=== PATIENT | male | born 1950 | race Caucasian/White ===

== ENCOUNTER 2018-04-12 16:48 | Emergency (ER) | payer MEDICARE, SELFPAY ==
[2018-04-12 16:50] VITALS: BP 143/89; PULSE 81; RESP 16; TEMP 36.5; O2SAT 94
--- NOTE | 2018-04-12 16:59 | DI.RAD_ITS ---
SYMPTOM/DIAGNOSIS: COUGH, RT BASE RHONCHI PA AND LATERAL CHEST: Comparison is made with 02/12/16. The heart size is normal. The aorta is mildly tortuous. The lungs are clear. There are mild degenerative changes in the spine. IMPRESSION: No acute abnormality.
--- NOTE | 2018-04-12 17:10 | ED.GENADUL_ITS ---
Discharge Plan Disposition Patient Disposition: HOME Condition: Stable Discharge Details Chief Complaint: RespSymp Clinical Impression: Pneumonia Primary Care Provider: Osman Garnica ED Provider: Андрей Novoa Home Meds and New Rx's Prescriptions: New amoxicillin-pot clavulanate 875-125 mg tablet 1 tab PO BID 10 Days Qty: 20 RF: 0 Continued aspirin [Aspirin Low-Strength] 81 MG tablet,chewable 81 mg PO DAILY RF: 0 cpap machine HS Qty: 1 RF: 0 ibuprofen 800 MG tablet 800 mg PO BID PRNQty: 60 RF: 1 sildenafil [Viagra] 100 MG tablet 100 mg PO DAILY PRNQty: 6 RF: 11 ProAir HFA 8.5 GM HFA aerosol inhaler 2 puff Inhalation Q6H PRN Qty: 1 RF: 11 ranitidine HCl 150 MG capsule 150 mg PO BID PRNQty: 90 RF: 3 Atorvastatin Calcium 20 MG tablet 20 mg PO DAILY Qty: 30 RF: 6 lidocaine-prilocaine 30 GM cream 30 gm Topical Q4H PRN Qty: 1 RF: 3 Discharge Instructions Instructions: Pneumonia (ED) Additional Instructions: Home to rest today. Small, frequent sips of fluids to maintain hydration. Followup with Dr Garnica for recheck if not improved in 4-5 days time. Return for worsening discomfort, or any other concerns. Tylenol as needed for aches, pains, fever. Medical Decision Making 67-year-old male with progressive cough and cold symptoms over 10-14 days time now with 3-4 days of increasing congestion, production of yellow sputum, subjective report of a fever and chills. He arrives afebrile, his vital signs are unremarkable, he has rhonchi on auscultation of the right base. Differential includes bronchitis versus pneumonia. Patient referred for chest x-ray which does not reveal focal infiltrate. I do feel clinical he is developing a right basilar pneumonia & we will place on a course of Augmentin. HPI General Mode of arrival: ambulatory . Date/Time Provider Initiated Documentation: 04/12/18 16:51 . Limitations to Documentation: no limitations . Information obtained by: patient . History of Present Illness 67 year old M presents to the emergency department with the chief complaint of Cough, sputum, fever, described as moderate, Quality is described as aching, and is localized to the chest. Patient reports no radiation. Patient started experiencing this day(s) and it has been constant. No relieving factors improve symptom(s), No exacerbating factors reported . Patient notes cough and fever/chills. Patient did receive the following treatments prior to arrival, none Related Data Home Medications Medication Instructions Recorded Confirmed aspirin [Aspirin Low-Strength] 81 mg PO DAILY tab-cap 04/01/14 ProAir HFA 2 puff INHALATION Q6H PRN #1 puff 12/19/16 04/12/18 ibuprofen 800 mg PO BID PRN #60 tab-cap 12/19/16 sildenafil [Viagra] 100 mg PO DAILY PRN #6 tab-cap 12/19/16 04/12/18 ranitidine HCl 150 mg PO BID PRN #90 tab-cap 03/06/17 lidocaine-prilocaine 30 gm TOPICAL Q4H PRN #1 tube 07/26/17 amoxicillin-pot clavulanate 1 tab PO BID 10 Days #20 tab 04/12/18 Previous Rx's Medication Instructions Recorded ProAir HFA 2 puff INHALATION Q6H PRN #1 puff 12/19/16 lidocaine-prilocaine 30 gm TOPICAL Q4H PRN #1 tube 07/26/17 amoxicillin-pot clavulanate 1 tab PO BID 10 Days #20 tab 04/12/18 Allergies Allergy/AdvReac Type Severity Reaction Status Date / Time No Known Allergies Allergy Unverified 04/12/18 16:55 General Stated Complaint: RespSymp KAYODE: 3 Review of Systems Review of Systems 11/10 reviewed and otherwise neg [facility] Surgical History Extraction of cataract Thoracentesis hernia repair Family History Father No problems noted. Brother No problems noted. Mother No problems noted. Brother Myocardial infarction Brother No problems noted. Sister No problems noted. Sister No problems noted. Sister No problems noted. Social History Smoking/Tobacco Use Status: Former Tobacco Use Exam Narrative Exam Narrative: GEN: awake, alert, oriented 3. Pleasant, well groomed, interactive. HEAD: Normocephalic, atraumatic ENT: Mucous membranes moist, oropharynx unremarkable, External ear exam unremarkable EYES: PERRL, EOMI NECK: Full ROM, no IRON, no menigismus CHEST/RESP: Nontender, right base rhonchi, otherwise clear, no wheeze CARDIOVASCULAR: RRR, no murmur, rub angi. 2+ Rad pulse bilateral ABDOMEN: Soft, nontender, no mass. +Bowel sounds EXT: Full ROM, no edema, no rash Neuro: Grossly normal neurologic exam, conversant, interactive. Psych: Speech fluent, thoughts congruent, affect normal Course Vital Signs Temperature 36.5 C 04/12/18 16:50 Pulse 81 04/12/18 16:50 Respiratory Rate 16 04/12/18 16:50 Blood Pressure 143/89 H 04/12/18 16:50 Pulse Oximetry 94 L 04/12/18 16:50 Temperature 36.5 C 04/12/18 16:50 Temperature Source Skin 04/12/18 16:50 Pulse 81 04/12/18 16:50 Respiratory Rate 16 04/12/18 16:50 Blood Pressure 143/89 H 04/12/18 16:50 Blood Pressure Position Sitting 04/12/18 16:50 Pulse Oximetry 94 L 04/12/18 16:50 Oxygen Delivery Method Room Air 04/12/18 16:50 Oxygen Flow Rate 0 04/12/18 16:50 Pain Level 4 04/12/18 16:50
--- NOTE | 2018-04-12 17:29 | DI.VRAD_ITS ---
EXAM: XR Chest, 2 Views EXAM DATE/TIME: 04/12/2018 4:59 PM CLINICAL HISTORY: 67 years old, male; Pain; Chest pain TECHNIQUE: XR of the chest, 2 views. COMPARISON: CR CHEST 2 VIEWS PA,LAT 02/12/2016 3:33 PM FINDINGS: Lungs: Unremarkable. No consolidation. Pleural space: Unremarkable. No pleural effusion. No pneumothorax. Heart/Mediastinum: Unremarkable. No cardiomegaly. Bones/joints: Chronic osseous changes. IMPRESSION: No acute cardiopulmonary findings. Dictated and Authenticated by: Rd Baeza MD. Ordering:IFEANYI Chiang MD
[2018-04-12] MEDS: Amoxicillin 875/Clav. 125 TAB PO (17:37)
[2018-04-12 17:40] VITALS: BP 143/89; PULSE 81; RESP 16; TEMP 36.5; O2SAT 94
== END 2018-04-12 17:45 | disposition home or self-care (01) ==
LOC: ER 17:47
PROVIDERS: Emergency Provider Emergency Medicine; PCP Family Medicine
DX: J18.9 Pneumonia, unspecified organism (principal)
CPT/HCPCS: 99284; 71046

== ENCOUNTER 2018-06-12 12:37 | Emergency (ER) | payer MEDICARE, SELFPAY ==
[2018-06-12 12:40] VITALS: BP 164/84; PULSE 74; RESP 20; TEMP 36.9; O2SAT 97
--- NOTE | 2018-06-12 12:57 | NUR.NOTE ---
Denies recent fall or trauma to either ear. No ear drainage. Tympanic membrane looks to be shiny, intact, pearly grace/pink. Nursing Note:
--- NOTE | 2018-06-12 13:07 | DI.CT_ITS ---
SYMPTOMS/DIAGNOSIS: RIGHT-SIDED SHARP HEADACHE, ? MASS/BLEED/CEREBROVASCULAR ACCIDENT CT HEAD, NONCONTRAST: No priors. The ventricles and sulci are consistent with the patient's age. No acute intracranial hemorrhage, infarct, midline shift or mass effect is identified. The ventricles are intact. The basilar cisterns are patent. The visualized paranasal sinuses are clear. The mastoid air cells are well pneumatized. The calvarium is intact. IMPRESSION: No acute intracranial process. The findings were discussed with Dr. Cabrera of the Emergency Department on the date of the examination.
--- NOTE | 2018-06-12 13:08 | ED.GENADUL_ITS ---
Discharge Plan Disposition Patient Disposition: HOME Condition: Improving Discharge Details Chief Complaint: Headache Clinical Impression: Right trigeminal neuralgia, Neuralgia involving scalp Primary Care Provider: Osman Garnica ED Provider: Merissa Cabrera Home Meds and New Rx's Prescriptions: New valacyclovir 1 gram tablet 1,000 mg PO TID 7 Days Qty: 21 RF: 0 No Action aspirin [Aspirin Low-Strength] 81 MG tablet,chewable 81 mg PO DAILY RF: 0 cpap machine HS Qty: 1 RF: 0 Discharge Instructions Instructions: Shingles (ED), Trigeminal Neuralgia (ED) Additional Instructions: The pain in your head and ear and near your eye might be due to a viral infection called shingles. The pain associated with shingles sometimes can start days to weeks before the onset of a rash. You may not have shingles, but if you do, it's important to start antiviral medication as soon as possible to prevent terminal block assembler pain associated with shingles called post-herpatic neuralgia. Take tylenol as needed and directed for pain. Follow up with your primary care doctor in 1 week for re-evaluation and for referral to neurology if your symptoms do not improve or worsen and for consideration of neuropathic medications to help with pain. Return immediately to the emergency department with any worsening or new concerning symptoms. Referrals: Roberta Winkler MD [ [facility] STAFF PHYSICIAN] - Discharge Data Discharge Physician: Merissa Cabrera Medical Decision Making 68-year-old male with history of asthma, GERD and obstructive sleep apnea who presents for right-sided headache for the past 3 days. Admits to right-sided ear pain that started 2 days prior to headache which resolved after 2 days. Also admits to weight nasal discharge, postnasal drip and sneezing. Patient admits to a chronic cough and smokes 1/2 pack of cigarettes daily. He denies fever, visual changes, nausea, vomiting, neck pain, sore throat, numbness, weakness or dizziness. Blood pressure mildly hypertensive, remainder vitals within normal limits. He has a very localized area of his location of intermittent sharp stabbing pain in the right parietal region. It is not tender to the touch and there is no evidence of infection or trauma. Normal ENT exam. Lungs clear to auscultation. No focal deficits. No meningeal signs. Discussed with patient that considering his age and complaint, would be best to obtain a CT head to rule out any acute process. Will give a dose of tylenol. 1410 -- CT head negative. Pt states his headache is improved. D/w neurology - presentation appears more c/w a neuralgia, considering a trigeminal neuralgia or possibly shingles. Agrees with plan for CTA head to rule out aneurysm. If negative, recommends antivirals upon discharge. Discussed with patient and now is present in room and they are agreeable with plan. now states that patient complained of foreign body sensation in eye 3 days ago which has been resolved for the past few days. He denies any significant eye pain, blurry vision or rash around the eye. This may make the presentation more consistent with a possible shingles affecting the ophthalmic branch of trigeminal nerve. 1530 -- CTA head/neck negative. Pt feels much better and is requesting to go home. Pt sent home with a prescription for anti-virals. Patient is instructed to follow-up with his primary care doctor for reevaluation and for referral for MRI if symptoms do not improve or worsen. Patient was also given referral for neurology for reevaluation if symptoms do not improve. He is also instructed to return here immediately with any significant worsening or new concerning symptoms. Medical Records Medical records reviewed: Yes I reviewed the patient's medical records. Imaging Data Radiologic Study: Radiologist's impression: CT HEAD, NONCONTRAST: No priors. The ventricles and sulci are consistent with the patient's age. No acute intracranial hemorrhage, infarct, midline shift or mass effect is identified. The ventricles are intact. The basilar cisterns are patent. The visualized paranasal sinuses are clear. The mastoid air cells are well pneumatized. The calvarium is intact. IMPRESSION: No acute intracranial process. CTA OF THE HEAD AND NECK: CT angiography was performed with multi slice acquisition and multi planar and 3D reconstruction. The common carotid arteries are unremarkable. No evidence of dissection, occlusion or significant stenosis. The external carotid arteries are unremarkable without evidence of occlusion or significant stenosis. The internal carotid arteries are unremarkable. No evidence of occlusion, dissection or significant stenosis is present. The vertebral arteries are unremarkable without evidence of dissection, occlusion or significant stenosis. There is mild calcification seen in the cavernous portion of the right internal carotid artery. The intracranial portion of the internal carotid arteries are otherwise unremarkable with no evidence of aneurysm, occlusion or significant stenosis. The anterior cerebral arteries are unremarkable without evidence of occlusion, aneurysm or significant stenosis. The middle cerebral arteries are unremarkable without evidence of aneurysm, occlusion or significant stenosis. The basilar artery is unremarkable without evidence of occlusion, dissection or significant stenosis. No aneurysm is seen. The posterior cerebral arteries are unremarkable without evidence of occlusion, aneurysm or significant stenosis. No acute abnormality is seen in the soft tissues. There are mild central lobular emphysematous changes in the lung apices. No acute infiltrates are seen. Degenerative changes are seen in the spine. IMPRESSION: No acute arterial injury is seen in the head or neck. Lab Data Lab results reviewed: Yes I reviewed the patient's lab results. Laboratory Tests Range/Units 06/12/18 06/12/18 14:30 14:30 WBC (4.4-10.8) k/cumm 8.10 RBC (4.50-6.00) m/cumm 4.30 L Hgb (13.5-17.5) g/dL 13.4 L Hct (40.0-50.0) % 40.0 MCV (80-95) fL 93.0 MCH (27.0-33.0) pg 31.2 MCHC (32.0-36.0) g/dL 33.5 RDW (11.8-14.1) % 14.4 H Plt Count (130-400) x1000/uL 217 MPV (8.0-11.0) fL 11.1 H Immature Gran % 0.2 Neutrophils % 62.9 Lymphocytes % 24.4 Monocytes % 8.0 Eosinophils % 3.5 Basophils % 1.0 Absolute Neutrophils (1.2-6.7) k/cumm 5.09 Absolute Lymphocytes (1.2-3.4) k/cumm 1.98 Absolute Monocytes (0.11-0.7) k/cumm 0.65 Absolute Eosinophils (0.0-0.7) k/cumm 0.28 Absolute Basophils (0.0-0.2) k/cumm 0.08 Sodium (136-145) mmol/L 142 Potassium (3.5-5.1) mmol/L 4.1 Chloride (98-107) mmol/L 105 Carbon Dioxide (21.0-32.0) mmol/L 30.9 Anion Gap (3-11) mmol/L 6.1 BUN (7-18) mg/dL 18 Creatinine (0.70-1.30) mg/dL 0.86 Estimated GFR/1.73 m2 (mL/min/1.73m2) >= 60.00 Glucose (70-100) mg/dL 96 Calcium (8.5-10.1) mg/dL 8.6 HPI General Mode of arrival: ambulatory . Date/Time Provider Initiated Documentation: 06/12/18 12:39 . Limitations to Documentation: no limitations . Information obtained by: patient . HPI Narrative: Pt is a 68 yo M w/ a h/o asthma, GERD, ROSI who presents w/ a R sided headache for the past 3 days. Pt states the symptoms first started as R sided inner ear pain 5 days ago and then this resolved after 2 days and then headache started. Pt denies tinnitus or decreased hearing. Pt states the pain in his head is localized to an area on the R parietal region, is intermittent and feels like sharp and stabbing, occasionally worse with coughing but also occurs without any inciting factors. Denies any relieving factors. Denies any pain at present but states he had the pain a few minutes ago and it was 6/10. He does also admit to occasional white nasal mucus, sneezing and post nasal drip and states he was thinking he may have allergies from home. He denies vision changes, sore throat, nausea, vomiting, dizziness, unilateral extremity weakness or numbness, neck pain, chest pain or shortness of breath. Related Data Home Medications Medication Instructions Recorded Confirmed aspirin [Aspirin Low-Strength] 81 mg PO DAILY tab-cap 04/01/14 06/12/18 valacyclovir 1,000 mg PO TID 7 Days #21 tab 06/12/18 Previous Rx's Medication Instructions Recorded valacyclovir 1,000 mg PO TID 7 Days #21 tab 06/12/18 Allergies Allergy/AdvReac Type Severity Reaction Status Date / Time No Known Allergies Allergy Unverified 06/12/18 12:44 General Stated Complaint: Headache KAYODE: 3 Review of Systems Review of Systems All systems reviewed & are unremarkable except as noted in HPI and below Constitutional Reports as per HPI, Denies chills, Denies fever(s) and Reports headache(s) Eyes Denies blurry vision ENT Denies dizziness, Reports headache(s), Denies sore throat and Denies throat swelling Cardiovascular Denies chest pain and Denies dyspnea Respiratory Denies cough and Denies dyspnea Gastrointestinal Denies abdominal pain, Denies diarrhea and Denies vomiting Genitourinary Denies hematuria and Denies dysuria Musculoskeletal Denies back pain and Denies numbness Integumentary/Breasts Denies lesions and Denies rash Neurologic Denies dizziness, Reports headache(s), Denies focal weakness and Denies numbness Allergic/Immunologic Denies throat swelling [facility] Medical History Other hyperlipidemia (Chronic) Asthma (Chronic) GERD (gastroesophageal reflux disease) (Chronic) Obstructive sleep apnea (Chronic) Surgical History Extraction of cataract Thoracentesis hernia repair Family History Father No problems noted. Brother No problems noted. Mother No problems noted. Brother Myocardial infarction Brother No problems noted. Sister No problems noted. Sister No problems noted. Sister No problems noted. Social History household members: spouse service: Yes current occupational status: employed current occupation: [employer] Recent Travel: No what type of physical activity do you participate in: regular exercise frequency: daily Smoking and Tabacco status: Current every day alcohol intake: current alcohol intake frequency: holidays/special occasions only substance use type: does not use Exam Const General: cooperative and healthy appearing Orientation: alert and awake HENMT Head: normal to inspection Ears: hearing grossly normal bilaterally, external ears normal and TM's normal bilaterally General nose exam: external nose normal Face and sinus: normal facial exam Mouth: oral mucosae normal Teeth and gingiva: dentition normal Throat: posterior oropharynx normal Eyes General: appearance normal, both eyes and all related structures Eyelids: eyelids normal Pupils: PERRL EOM: EOM intact bilaterally Direct ophthalmoscopy: photophobia not present Neck Neck: normal visual inspection, no meningeal signs, trachea midline, supple, negative Brudzinski's sign, negative Kernig's sign and No submandibular swelling Lymphatic: no lymphadenopathy noted Chest Chest: normal inspection of the chest Resp Effort & Inspection: normal respiratory effort and able to speak in complete sentences Auscultation: clear to auscultation bilaterally Cardio Rate: regular rate Rhythm: regular rhythm GI Inspection: normal to inspection Palpation: soft, not firm, no guarding, no hepatosplenomegaly, no masses and nontender Auscultation: normal bowel sounds Skin General skin exam: no rashes or lesions noted Neuro General: alert, awake, oriented x3, moves all extremities, no meningeal signs, no focal motor deficits and CN's II-XI intact bilaterally Cognition: normal cognition Speech: speech normal Gait: normal gait Motor: muscle tone normal throughout, strength 5/5 throughout and no pronator drift Sensory Exam: no sensory deficits noted Extrem General: normal to inspection, full ROM, normal capillary refill and no edema Psych Appearance: grossly normal Mental Status: mental status grossly normal Speech and Movement: speech and movement normal Affect: normal affect Thought Process: normal Course Vital Signs Temperature 98.4 F 06/12/18 12:40 Pulse 74 06/12/18 12:40 Respiratory Rate 20 06/12/18 12:40 Blood Pressure 164/84 H 06/12/18 12:40 Pulse Oximetry 97 06/12/18 12:40 Temperature 98.4 F 06/12/18 12:40 Temperature Source Temporal Artery Scan 06/12/18 12:40 Pulse 74 06/12/18 12:40 Respiratory Rate 20 06/12/18 12:40 Respiratory Effort Non-Labored 06/12/18 12:40 Blood Pressure 164/84 H 06/12/18 12:40 Blood Pressure Position Sitting 06/12/18 12:40 Pulse Oximetry 97 06/12/18 12:40 Oxygen Delivery Method Room Air 06/12/18 12:40 Oxygen Flow Rate 0 06/12/18 12:40 Pain Level 6 06/12/18 12:47
[2018-06-12] MEDS: Acetaminophen 325 MG TAB 650 MG PO (13:18)
[2018-06-12 13:43] VITALS: BP 117/72; PULSE 64; RESP 24; O2SAT 95
--- NOTE | 2018-06-12 13:45 | NUR.NOTE ---
Escort to CT via wheelchair by CT staffNursing Note:
--- NOTE | 2018-06-12 14:09 | NUR.NOTE ---
Addendum entered by Cheryl Matos 06/12/18 14:11: Alert, no WOB, skin warm/dry/pink. Reports headache is now gone, approx 1 hour after tylenol dose. Dr. Cabrera notified Original Note: Return from CT. Nursing Note:
[2018-06-12] MEDS: Normal Saline Flush 10 ML SYR IVP (14:35)
[2018-06-12] MEDS: Normal Saline 250 ML IV (14:41)
[2018-06-12 14:43] LABS: Abs Immature Grans 0.02 k/cumm (0.0-0.09); Absolute Basophil Count 0.08 k/cumm (0.0-0.2); Absolute Eosinophil Count 0.28 k/cumm (0.0-0.7); Absolute Lymphocyte Count 1.98 k/cumm (1.2-3.4); Absolute Monocyte Count 0.65 k/cumm (0.11-0.7); Absolute Neutrophil Count 5.09 k/cumm (1.2-6.7); Eosinophils % 3.5; HGB 13.4 g/dL (13.5-17.5); Immature Grans % 0.2; Lymphocytes % 24.4; Mean Corp. HGB Concentration 33.5 g/dL (32.0-36.0); Mean Corpuscular Hemoglobin 31.2 pg (27.0-33.0); Mean Platelet Volume 11.1 fL (8.0-11.0); Neutrophils % 62.9; Platelet Count 217 x1000/uL (130-400); RBC Distribution Width 14.4 % (11.8-14.1)
[2018-06-12 14:49] VITALS: BP 119/67; PULSE 54; RESP 18; TEMP 36.7; O2SAT 97
[2018-06-12 14:51] LABS: Anion Gap 6.1 mmol/L (3-11); BUN 18 mg/dL (7-18); CO2 30.9 mmol/L (21.0-32.0); CREATININE 0.86 mg/dL (0.70-1.30); Calcium 8.6 mg/dL (8.5-10.1); Chloride 105 mmol/L (98-107); Glucose 96 mg/dL (70-100); Potassium 4.1 mmol/L (3.5-5.1); Sodium 142 mmol/L (136-145)
[2018-06-12] MEDS: Omnipaque 350 MG/ML 100 ML BTL 85 ML IJ (15:21)
--- NOTE | 2018-06-12 15:25 | DI.CT_ITS ---
SYMPTOMS/DIAGNOSIS: RIGHT-SIDED HEADACHE, RIGHT EAR PAIN, ASSESS VASCULATURE CTA OF THE HEAD AND NECK: CT angiography was performed with multi slice acquisition and multi planar and 3D reconstruction. The common carotid arteries are unremarkable. No evidence of dissection, occlusion or significant stenosis. The external carotid arteries are unremarkable without evidence of occlusion or significant stenosis. The internal carotid arteries are unremarkable. No evidence of occlusion, dissection or significant stenosis is present. The vertebral arteries are unremarkable without evidence of dissection, occlusion or significant stenosis. There is mild calcification seen in the cavernous portion of the right internal carotid artery. The intracranial portion of the internal carotid arteries are otherwise unremarkable with no evidence of aneurysm, occlusion or significant stenosis. The anterior cerebral arteries are unremarkable without evidence of occlusion, aneurysm or significant stenosis. The middle cerebral arteries are unremarkable without evidence of aneurysm, occlusion or significant stenosis. The basilar artery is unremarkable without evidence of occlusion, dissection or significant stenosis. No aneurysm is seen. The posterior cerebral arteries are unremarkable without evidence of occlusion, aneurysm or significant stenosis. No acute abnormality is seen in the soft tissues. There are mild central lobular emphysematous changes in the lung apices. No acute infiltrates are seen. Degenerative changes are seen in the spine. IMPRESSION: No acute arterial injury is seen in the head or neck. The findings were discussed with the Emergency Department on the date of the examination.
[2018-06-12 15:37] VITALS: BP 108/86; PULSE 59; RESP 16; TEMP 36.6; O2SAT 97
--- NOTE | 2018-06-12 15:47 | NUR.NOTE ---
Escorted to CT for CTA via stretcher by CT staff. Returned to ED without event. Nursing Note:
[2018-06-12 16:11] VITALS: BP 135/74; PULSE 56; RESP 22; TEMP 36.7; O2SAT 95
== END 2018-06-12 16:15 | disposition home or self-care (01) ==
PROVIDERS: Emergency Provider Physician Assistant; PCP Family Medicine
DX: G50.0 Trigeminal neuralgia (principal); M79.2 Neuralgia and neuritis, unspecified
CPT/HCPCS: 70496; 70498; 80048; 99284; 70450; 85025; 99283; J3490

== ENCOUNTER 2019-02-05 01:23 | Outpatient (CLI) | payer MEDICARE, SELFPAY ==
--- NOTE | 2019-02-05 12:02 | DI.US_ITS ---
EXAM: US HERNIA CLINICAL HISTORY: Previous R herniorrhaphy, new pain, defect? K40.90 INGUINAL HERNIA TECHNIQUE: Ultrasound performed using standard protocol. COMPARISON: No exams were available for comparison FINDINGS: There is an area of fatty echogenicity and some shadowing in the right inguinal canal measuring 2 x 1 .8 x 2.4 cm. The findings could represent a recurrent inguinal hernia or could represent prior herni a repair. CT could be performed for further evaluation.
== END 2019-02-05 01:43 ==
PROVIDERS: PCP Family Medicine; Visit Provider Family Medicine
DX: R10.31 Right lower quadrant pain (principal); K40.90 Unilateral inguinal hernia, without obstruction or gangrene, not specified as recurrent; Z98.890 Other specified postprocedural states
CPT/HCPCS: 76857

== ENCOUNTER 2019-05-27 01:20 | Outpatient (CLI) | payer MEDICARE, SELFPAY ==
--- NOTE | 2019-05-27 10:31 | DI.CTLCSR_ITS ---
EXAM: CT CHEST LUNG CANCER SCREEN CLINICAL HISTORY: Screening for lung cancer F17.210 NICOTINE DEPENDENCE TECHNIQUE: CT examination of the chest was performed utilizing low-dose lung cancer screening protoc ol. COMPARISON: CHEST FOR PULMONARY EMBOLUS from 08/05/2011 FINDINGS: Images obtained through the upper abdomen show unremarkable appearance of visualized portions of the liver, spleen, pancreas, adrenals, and kidneys. There are a few very tiny peripheral upper lobe pulmonary nodules. There is a 6 millimeter in diamet er right upper lobe intrapulmonary nodule seen anteriorly. This is probably unchanged from prior CT of August 2011. No additional significant pulmonary nodule seen. Tracheobronchial tree appears intact. No pleural effusion. No mediastinal or hilar adenopathy. IMPRESSION: Probably stable right upper lobe 6 millimeter intrapulmonary nodule. Category 2, benign appearance o r behavior, continue annual screening with LD CT in 12 months.
== END 2019-05-27 01:40 ==
PROVIDERS: PCP Family Medicine; Visit Provider Family Medicine
DX: Z87.891 Personal history of nicotine dependence (principal); Z12.2 Encounter for screening for malignant neoplasm of respiratory organs; R91.1 Solitary pulmonary nodule
CPT/HCPCS: G0297

== ENCOUNTER → 2019-12-19 08:42 | Outpatient (BNVA) | payer MEDICARE, SELFPAY | PROVIDERS: PCP Family Medicine; Referring Provider Family Medicine; Visit Provider Physical Therapy Assistant | DX: Z12.11 Encounter for screening for malignant neoplasm of colon (principal); Z86.010 Personal history of colon polyps; J44.9 Chronic obstructive pulmonary disease, unspecified; Z79.82 Long term (current) use of aspirin ==

== ENCOUNTER 2019-12-30 10:02 | Day surgery (SDC) | payer MEDICARE, SELFPAY ==
--- NOTE | 2019-12-30 06:58 | COLE_ITS ---
Date of service: 12/30/19 Time of Service: 10:59 Colonoscopy Report Date of procedure: 12/30/19 Pre-op diagnosis general: Hx of polyps Post-op diagnosis procedure note: same Procedure: Colonoscopy with polypectomy by forceps Surgeon: Maira Lincoln Anesthesia proc note operative: other (General/ASA 2/Thi Rushing CRNA) Estimated blood loss (mL): 2 Pathology: other (Ascending polyp, sigmoid polyp x2, and rectal polyp) Complications: None Disposition: same day Indications: The patient is here for Colonoscopy pre-op. His last screening was in 2013 and was remarkable for tubular adenoma. He has no family history of col on cancer. He has not had any bowel habit changes. -Discussed colonoscopy bowel prep as well as the procedure. Discussed possible complications of the procedure to include bleeding, pain, perforation, missed small lesion/polyp, sore throat, aspiration and adverse reaction to the medications. Questions were answered to patient?s satisfaction. No guarantees were implied or given Prep: Miralax/Dulcolax Procedure Start Time: :59 Procedure End Time: 11:24 Retraction Time: 19 minutes Findings: 4 small polyps Procedure Description: After informed consent was obtained the patient was taken to the procedure room and placed in a left decubitous position. Monitors were applied and a time out was done. The patients name, date of , procedure, allergies to medications and metal in their body was reviewed. The patient was then sedated. Once sedated and comfortable a rectal exam was done. External exam was normal. Internal exam revealed a normal sphincter tone and no palpable masses. The prostate felt smooth and slightly enlarged. The scope was then introduced and retro-flexed. No internal hemorrhoids were identified. The scope was then advanced to the cecum without difficulty. The ileocecal valve and appendiceal orifice were identified. The prep was good. The scope was then slowly retracted over 19 minutes back into the rectum. Polyps were removed with cold forceps in the ascending colon, sigmoid colon x2 and rectum. There were no diverticula. The scope was removed and the patient was woken up and taken back to Same day surgery in stable condition. The patient tolerated the procedure well and there were no immediate complications. Follow up: The patient should follow up in 5 years unless they develop changes in bowel habits or other new gastrointestinal complaints.
--- NOTE | 2019-12-30 06:59 | W.PM.DSUDISC ---
Discharge Plan Disposition Patient Disposition: HOME Condition: Good Discharge Details Reason For Visit: Colonoscopy Attending Provider: Maira Lincoln Primary Care Provider: Osman Garnica Home Meds and New Rx's Prescriptions: Continued loratadine 10 mg capsule 10 mg PO DAILY Qty: 90 RF: 0 sildenafil 100 mg tablet 100 mg PO DAILY PRN (Reason: sexual activity) Qty: 6 RF: 6 ibuprofen 800 mg tablet 800 mg PO BID PRN (Reason: pain) Qty: 60 RF: 3 aspirin [Aspirin Low-Strength] 81 MG tablet,chewable 81 mg PO DAILY RF: 0 cpap machine HS Qty: 1 RF: 0 Discontinued bisacodyl [Dulcolax (bisacodyl)] 5 mg tablet,delayed release (DR/EC) 5 mg PO ONCE Qty: 4 RF: 0 polyethylene glycol 3350 17 gram/dose powder 17 g PO ONCE Qty: 238 RF: 0 Discharge Instructions Additional Instructions: Findings: 4 small polyps Follow up: depends on final pathology Please call if you develop: fevers >101.5 Nausea or Vomiting Abdominal pain that is not transient DAY SURGERY UNIT POST ENDOSCOPY INSTRUCTIONS 1. Because there will be medication in your system for the next 24 hours, you may feel a little sleepy. Your coordination will be affected. Therefore: a. Do not drive or operate dangerous equipment for 24 hours. b. Do not drink alcohol beverages for 24 hours (not even beer). c. Plan to go home and rest for the day. 2. Generally there are no restrictions on your activity after a day or so has gone by, but you may feel a bit fatigued for a few days. 3 After you arrive home you may have a light meal and return to a normal diet as you can tolerate it without feeling sick to your stomach. 4. After surgery, you may feel pain or discomfort. This should be only transient, but if it persists please contact your doctor. 5. If there are any questions regarding the findings of your procedure, please feel free to contact your doctor. 6. If you are unable to contact your doctor with a problem, contact the hospital at [phone]. 7. Continue all your regular medications unless directed otherwise. I understand the above instructions and have no questions. Signature of Patient or Responsible Adult Escort Date/Time Name of Responsible Adult Escort Signature of Nurse Date/Time Activity:: Activity as Tolerated Diet:: As Tolerated Discharge Orders Discharge Orders: Discharge Order (Routine); Ordered 12/30/19 Ordered By: Maira Lincoln
[2019-12-30 10:22] VITALS: BP 144/79; PULSE 77; RESP 16; TEMP 36.5; O2SAT 97
[2019-12-30] MEDS: Lactated Ringers 1,000 ML 80 ML IV (10:43)
--- NOTE | 2019-12-30 11:10 | BOWEL_PTH ---
PATIENT: Jhoan Parra LOC: [facility] U#:[id number] AGE/SX: 69/M ROOM: RE12/30/[address]: Maira Lincoln MD : [id number] BED: DIS: 12/30/2019 SPEC #: [id number] RECD: 12/30/19 13:01 STATUS: SH[facility]N REQ #: [id number] BENJY: 12/30/19 11:[address]: Maira Lincoln DEPT: Surgical Specimen RECD BY: Layne Zavala ENTERED: 12/30/19 13:03 SP TYPE: Bowel OTHR DR: Osman Garnica DO Tissues: 1 - BIOPSY BOWEL 2 - BIOPSY BOWEL 3 - BIOPSY BOWEL Procedures: GROSS AND MICRO LEVEL 4 Comments: [id number]
[2019-12-30 11:56] VITALS: BP 125/73; PULSE 63; RESP 16; TEMP 36.6; O2SAT 97
== END 2019-12-30 12:25 | disposition home or self-care (01) ==
LOC: SUR 10:03
PROVIDERS: PCP Family Medicine; Visit Provider Surgery
PROC: 0DJD8ZZ Inspection of Lower Intestinal Tract, Via Natural or Artificial Opening Endoscopic (ICD-10-PCS; CPT 45378; principal; 2019-12-30 11:45)
DX: Z12.11 Encounter for screening for malignant neoplasm of colon (principal); D12.2 Benign neoplasm of ascending colon; Z86.010 Personal history of colon polyps; G47.30 Sleep apnea, unspecified; J44.9 Chronic obstructive pulmonary disease, unspecified; K62.1 Rectal polyp
CPT/HCPCS: 45380; 88305; J2001

== ENCOUNTER 2020-02-17 09:58 | Outpatient (CLI) | payer MEDICARE, SELFPAY ==
[2020-02-20 03:05] LABS: Patient Race White; SARS-CoV-2 RNA Undetected (Undetected); SARS-CoV-2 Specimen Source Nasal
== END 2020-02-17 10:18 ==
PROVIDERS: PCP Family Medicine; Visit Provider Family Medicine
DX: Z20.828 Contact with and (suspected) exposure to other viral communicable diseases (principal)
CPT/HCPCS: U0003

== ENCOUNTER 2020-05-08 18:29 | Outpatient (REF) | payer MEDICARE, SELFPAY ==
[2020-05-11 16:24] LABS: COVID-19 RT-PCR UVMMC Result Negative (Negative)
== END 2020-05-08 18:30 | disposition home or self-care (01) ==
LOC: NCHCN 18:29
PROVIDERS: PCP Family Medicine; Visit Provider Nurse Practitioner Adult Health
DX: R05 Cough (principal); R09.81 Nasal congestion
CPT/HCPCS: U0003

== ENCOUNTER → 2020-06-16 09:17 | Outpatient (BNVA) | payer MEDICARE, SELFPAY | PROVIDERS: PCP Family Medicine; Referring Provider Family Medicine; Visit Provider Surgery | DX: K40.91 Unilateral inguinal hernia, without obstruction or gangrene, recurrent (principal); R06.00 Dyspnea, unspecified; G47.33 Obstructive sleep apnea (adult) (pediatric); J44.9 Chronic obstructive pulmonary disease, unspecified | CPT/HCPCS: 99213; 99215 ==

== ENCOUNTER 2020-06-22 02:22 | Outpatient (CLI) | payer MEDICARE, SELFPAY ==
--- NOTE | 2020-06-22 07:15 | DI.CTLCSR_ITS ---
EXAM: CT CHEST LUNG CANCER SCREEN CLINICAL HISTORY: Screening for lung cancer,CURRENT SMOKER, F17.210. TECHNIQUE: Imaging Protocol: Low Dose Technique CONTRAST MATERIAL: None COMPARISON: CT CT CHEST LUNG CANCER SCREEN from 05/27/2019 FINDINGS: CHEST: LUNGS: Previously described 5-6 millimeter nodule in the right upper lobe is unchanged from prior shaka dy. This may be a pseudo nodule at the pleural reflection between the right upper and right middle l obes.. There are unchanged Alva nodular densities in the lung busby. There are no new ominous nod ules. No pleural effusions. No confluent infiltrates. There are no significant focal findings in t he trachea and mainstem bronchi. MEDIASTINUM: There is no obvious hilar nor mediastinal adenopathy. CARDIAC: Heart size is normal. There is no pericardial effusion.Caliber of the thoracic aorta is wit hin normal limits. OTHER: Multiple gallstones are noted. No obvious acute cholecystitis. OSSEOUS: No significant osseous lesions.. IMPRESSION: 1. Stable benign-appearing findings, basically unchanged from prior CT scan May 2019. No new om inous nodules nor pleural effusions and no obvious intrathoracic adenopathy. 2. Cholelithiasis incidentally noted Lung rads 2: Benign findings. Very low likelihood of becoming active cancer due to lack of growth. Recommend repeat scan LDCT in 12 months. Lung-RADS 1.0 CATEGORIES: Category 0 - Prior chest CT exam(s) being located for comparison. Category 1 - Annual screening in 12 months. No nodules or definitely benign nodules. Category 2 - Annual screening in 12 months. Benign appearance. Nodules with low likelihood of becomin g active cancer. Category 3 - 6-month follow-up. Probably benign. Short-term follow-up suggested. Nodules with low lik elihood of becoming active cancer. Category 4A - 3-month follow-up and CT/PET if >8 mm in size. Suspicious finding. Findings which requi re additional testing. Category 4B - Findings which require additional testing and tissue sampling. Modifier S- Potentially clinically significant findings (non lung cancer) RADIATION DOSE DELIVERED: 90.67mGy.cm Total DLP 1.84mGy CTDIvol DATA REPOSITORY: All CT scans at this facility are submitted to the National Radiology Data Registry (NRDR) Dose Index Registry (DIR) with the [employer] (ACR). RADIATION OPTIMIZATION: All CT scans at this facility use at least one of these dose optimization te chniques: automated exposure control; mA and/or kV adjustment per patient size (includes targeted exa ms where dose is matched to clinical indication); or iterative reconstruction.
--- NOTE | 2020-06-22 07:15 | DI.US_ITS ---
APPROVED REPORT EXAM: Comprehensive 2D, Doppler, and color-flow Echocardiogram Patient Location: Out-Patient Instructor Hairspring: Gali Perez RDCS (AE) Indications: Dyspnea on exertion, Mitral regurgitation Other Information Study Quality: Adequate Conclusion Left Ventricle : The left ventricle is normal size. The left ventricular systolic function is normal. The left ventricular ejection fraction is within the normal range. There is normal left ventricular wall thickness. There is normal LV segmental wall motion. The left ventricular diastolic function is normal. LVEF is 52%. Right Ventricle : The right ventricle is normal size. The right ventricular systolic function is norm al. The RVSP is 23.2 mmHg. Atria : The left atrium size is normal. The right atrium size is normal. Mitral Valve : Mild mitral annular calcification. Mild mitral regurgitation. No evidence of mitral va lve stenosis. Great Vessels : The aortic root is normal in size. The ascending aorta is mildly dilated. Ascending a collin is not well visualized. IVC is normal in size and collapses >50% with inspiration. Please see remainder of study for further details. Wall motion Left Ventricle The left ventricle is normal size. The left ventricular systolic function is normal. The left ventric ular ejection fraction is within the normal range. There is normal left ventricular wall thickness. T here is normal LV segmental wall motion. The left ventricular diastolic function is normal. There is no ventricular septal defect visualized. LVEF is 52%. Right Ventricle The right ventricle is normal size. The right ventricular systolic function is normal. The RVSP is 23 .2 mmHg. Atria The left atrium size is normal. The right atrium size is normal. The interatrial septum is intact wit h no evidence for an atrial septal defect. Aortic Valve The aortic valve is normal in structure. Aortic valve is trileaflet. There is no aortic valvular sten osis. No aortic regurgitation is present. Mitral Valve Mild mitral annular calcification. No evidence of mitral valve stenosis. Mild mitral regurgitation. Tricuspid Valve The tricuspid valve is normal in structure. There is no tricuspid valve stenosis. Trace to mild tricu spid regurgitation. Pulmonic Valve The pulmonary valve is normal in structure. There is no pulmonic valvular stenosis. There is no pulmo niurka valvular regurgitation. Great Vessels The aortic root is normal in size. The ascending aorta is mildly dilated. Ascending aorta is not well visualized. IVC is normal in size and collapses >50% with inspiration. Pericardium There is no pericardial effusion. 2D Dimensions IVSD d PLAX 0.94 cm M: 0.6-1.2 LV Vol A2C d MOD 105.4 mL LVPW d PLAX 0.93 cm M: 0.6 - 1.2 LV Vol A4C d MOD 108.3 mL LVID d PLAX 5.47 cm M: 4.2 - 5.8 LA vol/ BSA A2C s A-L 12.5 mL/m2 LVDs 4.05 cm M: 2.5 - 4.0 LA vol/ BSA A4C s A-L 24.4 mL/m2 Ao Root d 3.12 cm M: 3.1 - 3.7 LA Vol/ BSA Biplane s A-L 19.2 mL/m2 RA Area A4C 12.13 cm2 LA Area A4C s MOD 17.80 cm2 RA Vol/ BSA A4C s A-L 17.4 mL/m2 LA Area A2C s MOD 11.60 cm2 Ao Asc Diam d 3.80 cm M: 2.6 - 3.4 LV EF A4C MOD 51.4 % LV EF Teichholz 50.1 % LV EF A2C MOD 51.9 % LVEF (Weeks's) 50.65 % M: 52 - 72 LV EF Biplane MOD 50.6 % LV Volume 85.20 mL M: 62 - 150 SV 56.27 mL LV Volume Index 45.56 mL/m2 M: 34 - 74 SV Index 30.03 mL/m2 LV Vol Biplane MOD 111.1 mL FS 25.70 % M-Mode TAPSE 2.58 cm (M/F) >1.7 LV Diastology MV E' medial 0.058 (>0.07 m/s) E/A Ratio 0.7 LV E/e MED 11.40 (<14) MV E Vmax 0.66 (0.4-1.3 m/s) MV E' lateral 0.082 (>0.1 m/s) MV A Vmax 0.90 (0.4-1.3 m/s) LV E/e LAT 8.00 (<14) MV E/A Ratio 0.72 MV E/E' medial 11.41 MV E/E' lateral 8.02 Aortic Valve LVOT Area 3.36 cm2 AoV Area Vmax 2.67 cm2 LVOT Vmax 1.23 m/s AoV Area/ BSA (Vmax) 1.43 cm2/m2 LVOT Mean Charlie. 0.73 m/s KG Mean Charlie. 2.20 cm2 LVOT Peak Grad 6.0 mmHg KG Mean Charlie. Index 1.18 cm2/m2 LVOT Mean Grad 2.6 mmHg LVOT VTI 0.271 m LVOT Diam s 2.05 cm AoV Vmax 1.54 m/s Velocity Ratio 0.79 AoV Mean Charlie. 1.12 m/s AoV Peak Grad 9.5 mmHg LVOT SV 90.97 mL AoV Mean Grad 5.4 mmHg AoV VTI 0.352 m AoV Area VTI 2.58 cm2 AoV Area/ BSA (VTI) 1.38 cm/m2 Mitral Valve MV DT 301 (160-240 msec) MR PISA Radius 0.58 cm MV PHT 87 msec MR Aliasing Velocity 0.35 m/s MV Area PHT 2.52 cm2 MR PISA 2.09 cm2 MV VTI 2.120 m MV VTI Annulus 2.148 m MV Area VTI 0.43 (4.0-6.0 cm2) Pulmonary Valve PV Vmax 1.23 (0.5-1.5 m/s) RVOT Peak Gr. 1.98 mmHg PV Peak Grad 6.0 mmHg RVOT Mean Gr. 0.90 mmHg PV Mean Grad 2.5 mmHg RVOT VTI 0.159 m PV VTI 0.241 m RVOT Vmax 0.70 m/s Tricuspid Valve TR Peak Grad 20.2 mmHg TR Vmax 2.25 m/s RA Pressure 3.00 mmHg RVSP (TR) 23.2 mmHg
== END 2020-06-22 02:42 ==
PROVIDERS: PCP Family Medicine; Visit Provider Family Medicine
DX: F17.210 Nicotine dependence, cigarettes, uncomplicated (principal); R06.09 Other forms of dyspnea; I34.0 Nonrheumatic mitral (valve) insufficiency
CPT/HCPCS: 71271; 93306

== ENCOUNTER 2020-10-21 11:06 | Outpatient (CLI) | payer MEDICARE, SELFPAY ==
[2020-10-22 11:31] LABS: COVID-19 RT-PCR UVMMC Result Negative (Negative)
== END 2020-10-21 11:07 | disposition home or self-care (01) ==
PROVIDERS: Nurse Practitioner; PCP Family Medicine; Visit Provider Family Medicine
DX: Z20.822 Contact with and (suspected) exposure to COVID-19 (principal)
CPT/HCPCS: U0003; U0005

== ENCOUNTER 2021-04-27 08:08 | Outpatient (CLI) | payer MEDICARE, SELFPAY ==
--- NOTE | 2021-04-27 08:00 | RT.EKG_ITS ---
APPROVED REPORT Exam: Resting ECG Reason for Exam: Pre-op exam Patient Location: O HR:60 bpm ECG Measurements Heart Rate 60 AXIS MA 169 P 64 QRSd 108 QRS 0 QT 444 T -47 QTc 445 Conclusion Sinus rhythm...normal P axis, V-rate 60- 99 Low voltage, extremity leads...all extremity leads <0.5mV Diffuse nondiagnostic ST-T abnormalities
== END 2021-04-27 08:09 | disposition home or self-care (01) ==
LOC: DI.KIM 08:09
PROVIDERS: PCP Family Medicine; Visit Provider Family Medicine
DX: Z01.818 Encounter for other preprocedural examination (principal); R94.31 Abnormal electrocardiogram [ECG] [EKG]
CPT/HCPCS: 93010

== ENCOUNTER → 2021-05-04 08:20 | Outpatient (BNVA) | payer MEDICARE, SELFPAY | PROVIDERS: PCP Family Medicine; Referring Provider Family Medicine; Visit Provider Surgery | DX: K40.91 Unilateral inguinal hernia, without obstruction or gangrene, recurrent (principal); Z98.890 Other specified postprocedural states | CPT/HCPCS: 99213 ==

== ENCOUNTER 2021-05-17 01:11 | Outpatient (CLI) | payer MEDICARE, SELFPAY ==
[2021-05-17 20:12] LABS: COVID-19 PCR Negative (Negative)
[2021-05-17 20:13] LABS: Source Nasal/Nares
== END 2021-05-17 01:12 | disposition home or self-care (01) ==
LOC: LBO 01:11
PROVIDERS: PCP Family Medicine; Visit Provider Surgery
DX: Z20.822 Contact with and (suspected) exposure to COVID-19 (principal); Z01.818 Encounter for other preprocedural examination
CPT/HCPCS: 87635

== ENCOUNTER 2021-05-19 06:07 | Day surgery (SDC) | payer MEDICARE, SELFPAY ==
[2021-05-19] VITALS (9 sets, daily range): BP systolic 141–171; BP diastolic 66–82; PULSE 44–56; RESP 14–21; TEMP 35.9–37.2; O2SAT 96–100; BMI 25.8
--- NOTE | 2021-05-19 06:13 | W.ANESPRE ---
General Info Date of Service Date Performed: 05/19/21 Height: 5 ft 8 in Weight: 77.111 kg Body Mass Index (BMI): 25.8 Surgical Procedure: Operation Date: 05/19/21 07:40 Proposed Procedure Side Surgeon p Herniorrhaphy Inguinal w/Mesh Right Maira Lincoln MD Meds Allergies and Home Medications Allergies Allergy/AdvReac Type Severity Reaction Status Date / Time adhesive tape Allergy Intermediate reaction Verified 05/19/21 06:22 to steri strips/postop hernia repair 2009 Home Medication Medication Instructions Recorded aspirin 81 mg chewable tablet 81 mg PO DAILY tab-cap 04/01/14 (Aspirin Low-Strength) ibuprofen 800 mg tablet 800 mg PO BID PRN #60 tab-cap 11/25/19 albuterol sulfate 90 mcg/actuation 2 puff INHALATION QID PRN #1 unit 03/25/21 aerosol inhaler (Ventolin HFA) Current Visit Medications: Current Medications Generic Name Dose Route Start Last Admin Trade Name Freq PRN Reason Stop Dose Admin Ringer's Solution 1,000 mls @ 80 mls/hr 05/19/21 06:00 IV 05/31/21 23:59 INFUSION SHAZIA IV Miscellaneous Supplies 1 each 05/19/21 06:00 Iv Access IV 05/31/21 23:59 DIRECTED SHAZIA Sodium Chloride 0 ml 05/19/21 06:00 Normal Saline Flush 10 Ml Syr IV 05/31/21 23:59 PRN PRN Sodium Chloride 0 ml 05/19/21 06:00 Normal Saline 10 Ml Vial IJ 05/31/21 23:59 DIRECTED PRN Sterile Water 0 ml 05/19/21 06:00 Water,Injection,Sterile 10 Ml Vial IJ 05/31/21 23:59 DIRECTED PRN PFSH Active Problems Active Problems: Problem Status Onset Code Obstructive sleep apnea, adult 01/08/08 G47.33 Chronic airway obstruction, not elsewhere classified 09/28/09 J44.9 Recurrent simple right inguinal hernia K40.91 Dyspnea on exertion R06.00 Nicotine dependence F17.200 Medical History Medical History Allergic rhinitis (05/31/11) Ankle edema (02/26/13) Asthma Benign neoplasm of colon, 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 at 30 cm from anus, [facility] [place]; again tubular adenoma at cecum 12/2013; rpt 2019 Chest pain, atypical (03/17/17) DECLINES STRESS TEST Elevated fasting blood sugar (01/27/15) Erectile dysfunction (04/01/14) Gastroesophageal reflux disease (10/08/12) chronic ranitidine Hearing loss (05/31/11) has bilateral hearing aids (not using) Hyperplastic colon polyp Kidney stone (05/31/11) Left ear pain Non-rheumatic mitral regurgitation ECHO 03/2015 mild-mod; no murmur heard 12/2015; rec ECHO q 3-5 yr per AHA 2014 guideline Obesity (BMI 30.0-34.9) (05/31/11) Other hyperlipidemia ,isk calc 19% 03/2014, smoker, rec ASA and Statin and stop smoking; risk 17% 03/2017 start Atormastatin Rhinosinusitis Runny nose Sessile colonic polyp Tobacco abuse disorder (07/29/14) Surgical History Surgical History (Updated 05/19/21 @ 06:34 by Dahlia Valenzuela RN) Extraction of cataract hernia repair History of surgery left arm. PT reports history of infection 2 day post op. Thoracentesis pt. denies this Tobacco Smoking/Tobacco Use Status: Current every day Tobacco Type: cigarettes Smoking packs per day: 0.5 Smoking cigarettes per day: 10.0 Years smoked: 30 Smoking pack-years: 15.00 Alcohol Alcohol Intake: current Alcohol intake frequency: holidays/special occasions only Alcohol type: beer Substance Use Substance use: Never Substance use type: does not use Vital Signs and Lab Results Vital Signs Most Recent Vital Signs in EMR: Temp Pulse Resp BP Pulse Ox 36.6 C 52 L 16 141/77 H 99 05/19/21 06:16 05/19/21 06:16 05/19/21 06:16 05/19/21 06:16 05/19/21 06:16 Lab Results Blood Type / Crossmatch: No Data to Display Complete Blood Count: No Data to Display Complete Metabolic Panel: No Data to Display Liver Function Panel: No Data to Display Coagulation Panel: No Data to Display Cardiac Panel: No Data to Display Arterial Blood Gas: No Data to Display Venous Blood Gas: No Data to Display Pancreas Panel: No Data to Display Thyroid Panel: No Data to Display Infectious Disease: Coronavirus (COVID-19)(PCR) Negative (Negative) 05/17/21 08:23 05/17/21 Coronavirus 2019 Source Nasal/Nares 05/17/21 08:23 05/17/21 Blood Cultures: No Data to Display Toxicology Panel: No Data to Display Imaging and Studies Imaging and Studies Study information below may be from another EMR and interpreted by another provider. Please see original notes in EMR for more complete details. EKG Summary: 04/24: sinus rhythm. low voltage. Echocardiogram Summary: 06/21: LVEF 52%, RVSP 22. mild MR. Anesthesia Assessment and Plan Anesthesia History Personal History: No History of Anesthesia Complications Family History: No Family History of Anesthesia Complications Exercise Tolerance Exercise Tolerance: Metabolic Equivalents>4 Cardiac & Pulmonary Exam Cardiac Exam: Normal S1/S2 Heart Sounds Pulmonary Exam: Clear Bilateral Breath Sounds Implantable Cardiac Device Does patient have a Pacemaker or an ICD?: No Airway Exam Known Difficult Airway: No Mallampati Class: 2 Mouth Opening: Normal (> 3cm) Thyromental Distance: Greater than 3 cm Neck Range of Motion: Full ROM Neck Circumference: Normal Teeth Condition: Removable Dentures/Plates Lower and Edentulous ASA Classification ASA Score: ASA 2 Emergency Case?: No NPO Status NPO Status: NPO Clears >2 hours, Solids >8 hours Anesthesia Plan Resuscitation Status: Full Code Anesthesia Technique: General Anesthesia Airway Planned: LMA Pain Management: Surgeon and patient request nerve block Monitors Used: Standard Monitors Preoperative Comments:: 71 yo male for right inguinal hernia repair. Sig PMHx: COPD/smoker (steroid course 10/21. albuterol), GERD (on his list, but denies), mild MR, ROSI (cpap). Previous Anes: colo-prop only, no issues.
--- NOTE | 2021-05-19 06:33 | W.PM.OP ---
Date of service: 05/19/21 Time of Service: 08:20 Operative Note Operative Note DATE OF PROCEDURE: 05/19/21 PRE-OP DIAGNOSIS: Recurrent simple right inguinal hernia POST-OP DIAGNOSIS: same (indirect) PROCEDURE: right inguinal hernia repair with mesh SURGEON: Maira Lincoln HANDLE SEWER: Kaitlin Mendoza ANESTHESIA TYPE: General LMA/ETT and Primary Nerve Block Refer to Anesthesia Record ESTIMATED BLOOD LOSS: 3 PATHOLOGY: none sent COMPLICATIONS: None Patient was transported to: PACU Patient's condition: stable Implants: PerFix Light Plug: REF- [id number] LOT- [id number] 08-28-2024 Indications: Soft tissue US in 2019 showed a small fat containing some fat. It has been getting more painful over the last year. 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 We discused open hernia repair with mesh. We reviewed risks, benefits and complications.? We discussed a tap block for pain control.? We reviewed Covid testing prior to the procedure.? HOLD Aspirin for 5 days prior to surgery. Risks, benefits and complications have been reviewed. Complications include but are not limited to bleeding, infection, injury to vas, vessels and nerves, injury to bowel and adverse reaction to medications. Questions were entertained and answered to their satisfaction and they wished to proceed.? COVID-19 testing explained to the patient. Reason for test reviewed. Quarantine per state requirements reviewed with patient. Patient understands and agrees to testing. Proceed with right recurrent inguinal hernia repair with mesh Findings: Tiny indirect recurrance. Old mesh not removed Procedure Description: After informed concent was obtained the patient was taken to the operating room and placed in a supine position. Monitors and SCDs were applied and a timeout was done. The patient's name, date of , procedure type, procedure site, allergies to medications, preoperative antibiotic, and DVT prophylaxis were all reviewed. Fire risk was assessed. Next anesthesia did a tap block on the right side under ultrasound guidance. Please see their separate dictation. Once anesthesia was done the abdomen was prepped and draped in a sterile surgical fashion. 0.5% Marcaine mixed with exparel was injected into the dermis in the right lower quadrant. An incision was made with a 10 blade in the right lower quadrant along his scar. Dissection was done with cautery through the subcutaneous tissues and Renée's fascia down to the external oblique fascia. The external ring was identified and the external oblique fascia was opened sharply through the external ring. The cut fascia was grasped with hemostats the cord structures were identified and a [place] drain was placed around them. The ilioinguinal nerve could not be identified within the scar tissue from his previous repair. The old mesh was identified and was in good position. There was direct hernia recurrence. There was a tiny amount of fat along the cord structures. This was bluntly dissected from the cord structures and then a small indirect defect was identified. A small light plug was placed into the defect and secured with 2-0 proline. Once the mesh was secured the tissues were irrigated with some normal saline. No bleeding was identified. The external oblique fascia was reapproximated using 2-0 Vicryl running suture. The Renée's fascia was reapproximated using interrupted 3-0 Vicryl. The dermis was reapproximated with a running 4-0 Vicryl. The skin was cleaned and dried and skin affix was applied. The patient was woken up and taken back to recovery in stable condition. There were no immediate complications. Sponge, instrument and needle counts were correct at the end of the case x2.
--- NOTE | 2021-05-19 06:35 | PDOC.DSDIS_ITS ---
Discharge Plan Disposition Patient Disposition: HOME Condition: Good Discharge Details Reason For Visit: Left inguinal hernia repair Attending Provider: Maira Lincoln Primary Care Provider: Osman Garnica Home Meds and New Rx's Prescriptions: New tramadol 50 mg tablet 50 mg PO Q6H PRNQty: 14 0RF Continued ibuprofen 800 mg tablet 800 mg PO BID PRN (Reason: pain) Qty: 60 3RF Rx Instructions: as needed aspirin [Aspirin Low-Strength] 81 MG tablet,chewable 81 mg PO DAILY 0RF Label Comments: 07/26/16 not currently taking MARI cpap machine HS Qty: 1 0RF Rx Instructions: used every night for sleep apnea; replaces 2008 machine albuterol sulfate [Ventolin HFA] 90 mcg/actuation HFA aerosol inhaler 2 puff inhalation QID PRN (Reason: shortness of breath or wheezing) Qty: 1 1RF Discharge Instructions Instructions: Inguinal Hernia Repair (DC) Additional Instructions: Activity at Home after surgery: 1. Make sure you walk outside at least 4 times per day 2. You should be able to climb a flight of stairs 3. No driving while in pain or taking pain medications 4. No strenuous activity or heavy lifting for 4 weeks (open surgery) Diet, Nutrition, & wound healin. Avoid alcohol until after you are recovered from your surgery 2. Make sure to eat plenty of lean protein (meat, fish, eggs, cottage cheese, beans) 3. Eat a variety of fruits and vegetables. Eat plenty of high fiber foods to avoid constipation. 4. Drink plenty of liquids to stay hydrated and avoid constipation Pain Medications: 1. Tylenol 650mg every 6 hours as needed and Ibuprofen 600 mg every 6 hours as needed. You may alternate between the 2 medications every 3 hours 2. If a narcotic has been prescribed take as directed only for breakthrough pain For Constipation: 1. Take Milk of Magnesia or MiraLax as needed for constipation Other: 1. You may shower daily. Do not scrub the incisions 2. Do not soak the incisions for 1 week 3. You may alternate ice and heat as needed for pain and swelling Wound Care: 1. Keep the incisions clean and dry Please call our office if you develop: 1. Fevers >101.5 2. Nausea or Vomiting 3. Worsening pain 4. Redness and thick discharge from the wounds If after hours please call the Hospital at and ask to speak to the on-call surgeon Referrals: Maira Lincoln MD [ [facility] STAFF PHYSICIAN] - Activity:: see above Diet:: As Tolerated Discharge Orders Discharge Orders: Discharge Order (Routine); Ordered 05/19/21 Ordered By: Maira Lincoln
[2021-05-19] MEDS: Lactated Ringers 1,000 ML 80 ML IV (06:40)
--- NOTE | 2021-05-19 07:10 | W.ANESNERVE ---
Nerve Block Single Injection Procedure Date and Time Date Performed: 05/19/21 Procedure Start: 07:26 Location Where Procedure Performed Procedure Location: Operating Room Procedure Stop: 07:35 Reason Performed: Postoperative Analgesia Requesting Provider: Maira Lincoln Timeout Performed Timeout Performed: Yes Monitoring Used ECG, Blood Pressure, SpO2 and ETCO2 Sterility Sterility: Hand Hygiene, Surgical Cap, Surgical Mask, Sterile Gloves and Chlorhexidine Sedation Given During Procedure Sedation Given (Indicate Dose Given): No Sedation given Patient Mental Status Patient Mental Status: Performed under general anesthesia Nerve Block 1st Nerve Block: Laterality: Right Block Type: TAP Unilateral Needle / Catheter Used: 100mm SonoPlex II Local Anesthetic Bolus (Indicate Dose Given): Injected in 3-5ml increments after negative blood aspiration, Bupivacaine 0.375% Dose:: 20 mL and Exparel Dose:: 10 mL Additives (Indicate Dose Given): None Ultrasound: Sterile probe cover and gel used Ultrasound Image Saved?: Yes Nerve Stimulator: Not Used Paresthesia: None Procedure Tolerated: No Complications Procedure Outcome: Successful Performed By: Rodolfo Lora
[2021-05-19] MEDS: ceFAZolin 2 GM/50 ML BAG IVPB (07:29)
[2021-05-19] MEDS: Bupivacaine 0.25% Pres-Free 30 ML VIAL (07:44)
[2021-05-19] MEDS: Bupivacaine LIPOSOME/PF 133 MG/10 ML VIAL IJ (07:44)
[2021-05-19] MEDS: fentaNYL 100 MCG/2 ML VIAL IVP ×2 (09:05→09:14)
--- NOTE | 2021-05-19 09:22 | W.ANESPOSTOP ---
Postoperative Evaluation Date, Time and Location Date Performed: 05/19/21 Time Performed: : Patient Location: PACU Vital Signs Most Recent Imported Vital Signs: Most Recent Vital Signs Temp Pulse Resp BP Pulse Ox 37.2 C 48 L 19 159/79 H 99 05/19/21 09:15 05/19/21 09:15 05/19/21 09:15 05/19/21 09:15 05/19/21 09:15 Pain Score Most Recent Pain Score: Most Recent Pain Score Pain Level 0 05/19/21 08:43 Assessment Mental Status: Awake (Alert & Oriented to Patient Baseline) Airway and Respiratory Function: Patent airway with normal (patient baseline) respiratory exam Cardiovascular Function: Hemodynamically Stable Hydration Status: Adequately Hydrated Nausea & Vomiting: No Nausea or Vomiting Pain: Pain is tolerable per patient Peripheral Nerve Block: Regional nerve block not resolved at time of post operative discharge
[2021-05-19] MEDS: traMADol 50 MG TAB PO (09:51)
== END 2021-05-19 10:58 | disposition home or self-care (01) ==
PROVIDERS: PCP Family Medicine; Visit Provider Surgery
PROC: (CPT 49520; principal; 2021-05-19 07:30)
DX: K40.91 Unilateral inguinal hernia, without obstruction or gangrene, recurrent (principal); K21.9 Gastro-esophageal reflux disease without esophagitis; I34.0 Nonrheumatic mitral (valve) insufficiency; E66.9 Obesity, unspecified; E78.5 Hyperlipidemia, unspecified; G89.18 Other acute postprocedural pain
CPT/HCPCS: 49520; 76942; C1781; J0690; J1100; J1885; J2001; J2405; J2704; J3010

== ENCOUNTER → 2021-06-04 09:29 | Outpatient (BNVA) | payer MEDICARE, SELFPAY | PROVIDERS: PCP Family Medicine; Referring Provider Family Medicine; Visit Provider Surgery | DX: Z48.815 Encounter for surgical aftercare following surgery on the digestive system (principal) ==

== ENCOUNTER 2021-12-28 01:47 | Outpatient (CLI) | payer MEDICARE, SELFPAY ==
--- NOTE | 2021-12-28 06:45 | DI.RAD_ITS ---
Exam(s) XR CHEST 2V PA LATERAL EXAM: XR CHEST 2V PA LATERAL CLINICAL HISTORY: r/o acute process,SOB ON EXERTION,CHRONIC AIRWAY OBSTR,R06.02 TECHNIQUE: 2D digital imaging was performed of the chest. Two images were obtained. PA and lateral views were obtained. COMPARISON: CR XR CHEST 2V PA LATERAL from 04/12/2018 FINDINGS: MEDIASTINUM: Normal. HEART: Normal. PULMONARY VASCULATURE: Normal. LUNGS: Clear. The lungs are hyperinflated with flattened diaphragms suggesting underlying COPD. PLEURAL SPACE: No pleural effusion or pneumothorax. BONE:Within normal limits for the patient's age. OTHER FINDINGS:Normal. IMPRESSION: No acute pulmonary findings. DATA REPOSITORY: RADIATION DOSE DELIVERED:
== END 2021-12-28 02:07 ==
PROVIDERS: PCP Family Medicine; Visit Provider Nurse Practitioner Adult Health
DX: J44.9 Chronic obstructive pulmonary disease, unspecified (principal); R06.02 Shortness of breath
CPT/HCPCS: 71046

== ENCOUNTER 2022-03-14 02:30 | Outpatient (CLI) | payer MEDICARE, SELFPAY ==
--- NOTE | 2022-03-14 12:31 | DI.CTLCSR_ITS ---
Exam(s) CT CHEST LUNG CANCER SCREEN EXAM: CT CHEST LUNG CANCER SCREEN CLINICAL HISTORY: Screening for lung cancer,SMOKER, F17.210. TECHNIQUE: Imaging Protocol: Low Dose Technique CONTRAST MATERIAL: None COMPARISON: CT CT CHEST LUNG CANCER SCREEN from 06/22/2020 FINDINGS: CHEST: LUNGS: There is stable appearance of small previously described right lung nodule. There are no new ominous pulmonary nodules. There are no confluent infiltrates. No pleural effusions. MEDIASTINUM: There is no obvious hilar nor mediastinal adenopathy. CARDIAC: Heart size is normal. There is no pericardial effusion.Caliber thoracic aorta is upper norm al. OTHER: Cholelithiasis again noted. No new adrenal masses OSSEOUS: No significant osseous lesions.. IMPRESSION: 1. Continued stable benign-appearing findings. No new lung nodules pleural effusions nor obvious int rathoracic adenopathy. 2. Cholelithiasis again noted. 3. Lung RADS Cat 2 - Benign Appearance / Behavior: Nodules with a very low likelihood of becoming a c linically active cancer due to size or lack of growth Lung-RADS 1.0 CATEGORIES: Category 0 - Prior chest CT exam(s) being located for comparison. Category 1 - Annual screening in 12 months. No nodules or definitely benign nodules. Category 2 - Annual screening in 12 months. Benign appearance. Nodules with low likelihood of becomin g active cancer. Category 3 - 6-month follow-up. Probably benign. Short-term follow-up suggested. Nodules with low lik elihood of becoming active cancer. Category 4A - 3-month follow-up and CT/PET if >8 mm in size. Suspicious finding. Findings which requi re additional testing. Category 4B - Findings which require additional testing and tissue sampling. Category 4X - Category 3 or 4 nodules with additional features or imaging findings that increases the suspicion of malignancy. Modifier S- Potentially clinically significant findings (non lung cancer) RADIATION DOSE DELIVERED: 82.6mGy.cm Total DLP !Error 1.84mGyCTDIvol DATA REPOSITORY: All CT scans at this facility are submitted to the National Radiology Data Registry (NRDR) Dose Index Registry (DIR) with the [employer] (A[employer]). RADIATION OPTIMIZATION: All CT scans at this facility use at least one of these dose optimization te chniques: automated exposure control; mA and/or kV adjustment per patient size (includes targeted exa ms where dose is matched to clinical indication); or iterative reconstruction.
== END 2022-03-14 02:50 ==
PROVIDERS: PCP Family Medicine; Visit Provider Family Medicine
DX: Z12.2 Encounter for screening for malignant neoplasm of respiratory organs (principal); F17.210 Nicotine dependence, cigarettes, uncomplicated; R91.1 Solitary pulmonary nodule; K80.20 Calculus of gallbladder without cholecystitis without obstruction
CPT/HCPCS: 71271

== ENCOUNTER 2022-03-31 02:27 | Outpatient (CLI) | payer MEDICARE, SELFPAY ==
[2022-03-31 12:14] LABS: ALT 14 U/L (16-63); AST 15 U/L (15-37); Alkaline Phosphatase 79 U/L (46-116); Anion Gap 5.1 mmol/L (3-11); BUN 17 mg/dL (7-18); Bilirubin, Total 0.4 mg/dL (0.2-1.0); CO2 29.9 mmol/L (21.0-32.0); Calcium 8.7 mg/dL (8.5-10.1); Chloride 105 mmol/L (98-107); Estimated GFR 79.47 (mL/min/1.73m2); Glucose 101 mg/dL (74-106); Potassium 3.9 mmol/L (3.5-5.1); Sodium 140 mmol/L (136-145); Total Protein 7.8 g/dL (6.4-8.2)
== END 2022-03-31 02:28 | disposition home or self-care (01) ==
LOC: LBO 02:27
PROVIDERS: PCP Family Medicine; Visit Provider Family Medicine
DX: Z01.818 Encounter for other preprocedural examination (principal)
CPT/HCPCS: 36415; 80053

== ENCOUNTER 2022-04-25 03:06 | Outpatient (CLI) | payer MEDICARE, SELFPAY ==
[2022-04-25] MEDS: Albuterol HFA 18 GM 200 PUFF INH IH (10:41)
[2022-04-25] MEDS: Inhaler, Assist Device 1 EACH MC (10:42)
--- NOTE | 2022-04-25 11:29 | W.PFT ---
Date of service: 04/25/22 Time of Service: 10:04 Pulmonary Function Test Result Requesting Provider Osman Garnica Indications: COPD Interpretation Spirometry: There is moderate airflow limitation. There is no significant bronchodilator response. Impression Moderate airflow obstruction. Note: When compared to 09/28/09, the FVC and FEV1 are stable when accounting for aging. Clinical Correlation therefore is recommended.
== END 2022-04-25 03:07 | disposition home or self-care (01) ==
LOC: RT 03:07
PROVIDERS: PCP Family Medicine; Visit Provider Family Medicine
DX: R94.2 Abnormal results of pulmonary function studies (principal); J44.9 Chronic obstructive pulmonary disease, unspecified; R06.09 Other forms of dyspnea; F17.210 Nicotine dependence, cigarettes, uncomplicated
CPT/HCPCS: 94060

== ENCOUNTER 2022-09-07 17:22 | Emergency (ER) | payer MEDICARE, SELFPAY ==
[2022-09-07] VITALS (21 sets, daily range): BP systolic 115–137; BP diastolic 59–95; PULSE 66–86; RESP 18; TEMP 37.2; O2SAT 89–100
--- NOTE | 2022-09-07 17:45 | DI.RAD_ITS ---
Exam(s) XR PORTABLE CHEST AP EXAM: XR PORTABLE CHEST AP CLINICAL HISTORY: cough, fever TECHNIQUE: 2D digital imaging was performed of the chest. One image was obtained. An AP view was ob tained. COMPARISON: CR XR CHEST 2V PA LATERAL from 12/28/2021 FINDINGS: The lateral costophrenic angle is clipped and not visualized. MEDIASTINUM: Normal. HEART: Normal. PULMONARY VASCULATURE: Normal. LUNGS: Clear. PLEURAL SPACE: No pleural effusion or pneumothorax. BONE:Within normal limits for the patient's age. OTHER FINDINGS:Normal. IMPRESSION: No acute pulmonary findings. DATA REPOSITORY: RADIATION DOSE DELIVERED:
--- NOTE | 2022-09-07 17:49 | ED.GENADUL_ITS ---
Discharge Plan Disposition Patient Disposition: Home Condition: Stable Discharge Details Clinical Impression: Chronic airway obstruction, not elsewhere classified, Chills Primary Care Provider: Osman Garnica ED Provider: Fermin Negron Home Meds and New Rx's Prescriptions: New doxycycline hyclate 100 mg tablet 100 mg PO BID Qty: 28 0RF prednisone 20 mg tablet 60 mg PO DAILY 4 Days Qty: 12 0RF levofloxacin 750 mg tablet 750 mg PO DAILY Qty: 5 0RF Continued ibuprofen 800 mg tablet 800 mg PO BID PRN (Reason: pain) Qty: 60 3RF Rx Instructions: as needed albuterol sulfate [Ventolin HFA] 90 mcg/actuation HFA aerosol inhaler 2 puff inhalation QID PRN (Reason: shortness of breath or wheezing) Qty: 1 1RF aspirin [Aspirin Low-Strength] 81 MG tablet,chewable 81 mg PO DAILY Patient Comments: 07/26/16 not currently taking MARI cpap machine HS Qty: 1 0RF Rx Instructions: used every night for sleep apnea; replaces 2007 machine Discharge Instructions Instructions: COPD (Chronic Obstructive Pulmonary Disease) (ED) Additional Instructions: You are being treated for a copd exacerbation and possibly a urinary tract infection You had a tick panel sent which the results should return in 1-2 days follow up with your primary care provider within 1 week if symptoms continue if you feel more ill, have difficulty breathing or severe weakness return to the emergency department Medical Decision Making 72 yo male with hx of copd, who comes in with subjective fevers and also chills for 2-3 days along with dry cough. He denies rashes, headache, neck stiffness, a bdominal pain. He has no pain anywhere. He has had a runny nose. He arrives stable and appears well in no distress. Speaking in full sentences caox4. He does have clear rhinorrhea, normal posterior pharynx, no meningismus, mild apical wheezing bilaterally and clear lung sounds otherwise at the bases. He has no abdominal tenderness. Given his cough and fevers/chills concern for pneumonia vs covid vs flu vs copd exacerbation, will treat with duoneb, prednisone, obtain fluvid, cbc, cmp, procalcitonin and xray and reassess. labs show thrombocytopenia, JAMES creatinine of 1.6 and baseline is 1.0. He is tolerating po and doesn't appear dehydrated. His ua does have some bacteria in it and leukocytes, denies urinary symptoms. Concern for possible tick born illness with his thrombocytopenia and states he has had a few ticks on him this season. His procalcitonin is elevated at 2.2 but has stable vitals and appears well and wants to go home which I feel is reasonable given his well appearance and stable vitals. Will cover for urinary source with levofloxacin and start doxy for both a copd exacerbation and possible tick born illness. He was instructed to f/u with his pcp, return precautions given Differential Diagnosis Differential Diagnosis: covid, flu, copd exacerbation, pneumonia Imaging Data Radiologic Study: Attestation: I personally reviewed and interpreted this imaging study as follows: Imaging: X-Ray Radiologist's impression: Exam: XR Chest Exam date and time: 09/07/2022 6:47 PM Age: 72 years old Clinical indication: Cough and fever; Additional info: Cough, fever TECHNIQUE: Imaging protocol: Radiologic exam of the chest. Views: 1 view. COMPARISON: CT CHEST LUNG CANCER SCREEN 03/14/2022 12:31 PM FINDINGS: Lungs: The lungs are clear. There is no pulmonary vascular congestion. Pleural spaces: There are no pleural effusions present, although evaluation for small left pleural effusion is limited, as the left lateral costophrenic angle is not imaged on this exam. Heart/Mediastinum: The cardiomediastinal silhouette is within normal limits. Bones/joints: Unremarkable. IMPRESSION: No active cardiopulmonary disease identified Lab Data Lab results reviewed: Yes I reviewed the patient's lab results. HPI General Mode of arrival: ambulatory . Date/Time Provider Initiated Documentation: 09/07/22 17:28 . Limitations to Documentation: no limitations . Information obtained by: patient . History of Present Illness 72 year old M presents to the emergency department with the chief complaint of fever/chills, described as moderate, Patient started experiencing this day(s) (3) and it has been constant. No relieving factors improve symptom(s), No exacerbating factors reported . Patient notes cough. Patient did receive the following treatments prior to arrival, none Related Data Home Medications Medication Instructions Recorded Confirmed aspirin 81 mg chewable tablet 81 mg PO DAILY 04/01/14 09/07/22 (Aspirin Low-Strength) ibuprofen 800 mg tablet 800 mg PO BID PRN pain #60 tab-caps 11/25/19 02/21/22 albuterol sulfate 90 mcg/actuation 2 puff inhalation QID PRN 12/27/21 09/07/22 aerosol inhaler (Ventolin HFA) shortness of breath or wheezing #1 unit doxycycline hyclate 100 mg tablet 100 mg PO BID #28 tabs 09/07/22 levofloxacin 750 mg tablet 750 mg PO DAILY #5 tabs 09/07/22 prednisone 20 mg tablet 60 mg PO DAILY 4 days #12 tabs 09/07/22 Previous Rx's Medication Instructions Recorded ibuprofen 800 mg tablet 800 mg PO BID PRN pain #60 tab-caps 11/25/19 albuterol sulfate 90 mcg/actuation 2 puff inhalation QID PRN 12/27/21 aerosol inhaler (Ventolin HFA) shortness of breath or wheezing #1 unit doxycycline hyclate 100 mg tablet 100 mg PO BID #28 tabs 09/07/22 levofloxacin 750 mg tablet 750 mg PO DAILY #5 tabs 09/07/22 prednisone 20 mg tablet 60 mg PO DAILY 4 days #12 tabs 09/07/22 Allergies Allergy/AdvReac Type Severity Reaction Status Date / Time adhesive tape Allergy Intermediate reaction Verified 09/07/22 17:38 to steri strips/postop hernia repair 2009 General Stated Complaint: RespSymp KAYODE: 4 Review of Systems All systems reviewed & are unremarkable except as noted in HPI and below Constitutional Constitutional: Reports chills, Reports fever(s) and Denies weakness Cardiovascular Cardiovascular: Denies chest pain and Denies dyspnea Respiratory Respiratory: Denies dyspnea Gastrointestinal Gastrointestinal: Denies abdominal pain, Denies nausea and Denies vomiting Genitourinary Genitourinary: Denies dysuria Integumentary/Breasts Skin/Breast: Denies rash Neurologic Neurologic: Denies weakness [facility] All Active Problems (Updated 09/07/22 @ 19:48 by Fermin Negron MD) Chills (Acute) Obstructive sleep apnea, adult (Acute 01/08/08) Sleep Lab [facility] [place] 2007; CPAP ([facility]) Chronic airway obstruction, not elsewhere classified (Acute 09/28/09) FEV1 2.46 (mild obst, 74% pred, 71% FVC); STOPPED SMOKING 09/2012; resume <= 1 PPD; stopped again 12/2015 Dyspnea on exertion (Acute) Nicotine dependence (Chronic) Medical History Allergic rhinitis (05/31/11) Ankle edema (02/26/13) Asthma Benign neoplasm of colon, 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 at 30 cm from anus, [facility] [place]; again tubular adenoma at cecum 12/2013; rpt 2019 Chest pain, atypical (03/17/17) DECLINES STRESS TEST Elevated fasting blood sugar (01/27/15) Erectile dysfunction (04/01/14) Gastroesophageal reflux disease (10/08/12) chronic ranitidine Hearing loss (05/31/11) has bilateral hearing aids (not using) Hyperplastic colon polyp Kidney stone (05/31/11) Left ear pain Non-rheumatic mitral regurgitation ECHO 03/2015 mild-mod; no murmur heard 12/2015; rec ECHO q 3-5 yr per AHA 2014 guideline Obesity (BMI 30.0-34.9) (05/31/11) Other hyperlipidemia ,isk calc 19% 03/2014, smoker, rec ASA and Statin and stop smoking; risk 17% 03/2017 start Atormastatin Recurrent simple right inguinal hernia Rhinosinusitis Runny nose Sessile colonic polyp Tobacco abuse disorder (07/29/14) Surgical History Extraction of cataract hernia repair History of surgery left arm. PT reports history of infection 2 day post op. S/P right inguinal hernia repair (~05/2021) Thoracentesis pt. denies this Family History Father , unknown at age 73. No problems noted. Brother , Lung Cancer at age 53. No problems noted. Mother , CVA at age 84. No problems noted. Brother , heart attack at age 59. Myocardial infarction Brother , heart at age 69. No problems noted. Sister No problems noted. Sister No problems noted. Sister No problems noted. Social History Smoking/Tobacco Use Status: Current every day Tobacco Type: cigarettes Smoking packs per day: 0.5 Smoking cigarettes per day: 10.0 Years smoked: 30 Smoking pack-years: 15.00 Quit status: considering quitting Smoking risk assessment performed?: Yes Alcohol Intake: current Alcohol Intake frequency: holidays/special occasions only Alcohol type: beer Drug use: Never Substance use type: does not use Household members: spouse current occupation: [employer] Current gender identity: male What is your relationship status?: Panel score (0-1 are the most socially isolated patients): 1 What type of physical activity do you participate in: none Frequency: daily Seatbelt use: always Drive intox or ride w/intox driver retraining instructor: No Working smoke detector in home: Yes Fire extinguisher in home: Yes Carbon monox detector in home: Yes Do you feel safe at home: Yes Do you feel safe in your relationship?: Yes Exam Const General: no acute distress Orientation: alert HENME Head: normal to inspection Ears: external ears normal General nose exam: external nose normal Mouth: moist mucous membranes Eyes General: appearance normal, both eyes and all related structures Neck Neck: normal visual inspection Chest Chest: no crepitus and no tenderness Resp Effort & Inspection: normal respiratory effort and able to speak in complete sentences Auscultation: wheezes Cardio Rate: regular rate GI Palpation: soft and nontender Skin General skin exam: no rashes or lesions noted Neuro General: patient alert and patient oriented x3 Extrem General: normal to inspection Psych Mental Status: mental status grossly normal Course Vital Signs Vital signs: Vital Signs Temperature 37.2 C 09/07/22 17:31 Pulse 86 09/07/22 17:31 Respiratory Rate 18 09/07/22 17:31 Blood Pressure 123/95 H 09/07/22 17:31 Pulse Oximetry 97 09/07/22 17:31 Temperature 37.2 C 09/07/22 17:31 Temperature Source Oral 09/07/22 17:31 Pulse 86 09/07/22 17:31 Respiratory Rate 18 09/07/22 17:31 Respiratory Effort Normal 09/07/22 17:35 Respiratory Depth Normal 09/07/22 17:35 Blood Pressure 123/95 H 09/07/22 17:31 Blood Pressure Position Sitting 09/07/22 17:31 Pulse Oximetry 97 09/07/22 17:31 Oxygen Delivery Method Room Air 09/07/22 17:31 Oxygen Flow Rate 0 09/07/22 17:31 Pain Level 0 09/07/22 17:31
[2022-09-07] MEDS: predniSONE 20 MG TAB 60 MG PO (18:17)
[2022-09-07] MEDS: Acetaminophen 500 MG TAB 1000 MG PO (18:17)
[2022-09-07] MEDS: Albuterol/Ipratropium 3 ML UPD VIAL UPD (18:17)
[2022-09-07 18:30] LABS: COVID-19 PCR Negative (Negative); Influenza A PCR Negative (Negative); Influenza B PCR Negative (Negative); RSV PCR Negative (Negative)
[2022-09-07 18:36] LABS: Source Nasopharynx
[2022-09-07 18:43] LABS: Abs Immature Grans 0.01 10^3/uL (0.0-0.06); HCT 38.7 % (40.0-50.0); HGB 13.7 g/dL (13.5-17.5); MCH 31.6 pg (27.0-33.0); MCHC 35.4 % (32.0-36.0); MCV 89 fL (80-95); MPV 11.6 fL (8.0-11.0); RBC 4.33 10^6/uL (4.36-5.78); RDW 13.2 % (11.8-14.1); RDW-SD 43.8 fL; WBC 5.74 10^3/uL (4.4-10.8)
[2022-09-07 19:02] LABS: Absolute Lymphocyte Count 0.23 10^3/uL (1.2-3.4); Absolute Monocyte Count 0.23 10^3/uL (0.1-0.8); Absolute Neutrophil Count 5.28 10^3/uL (1.2-6.7); Bands % 8; Platelet Count 83 10^3/uL (130-400)
[2022-09-07 19:03] LABS: Diff Comment Manual Differential; RBC Morphology Normal
[2022-09-07 19:07] LABS: ALT 37 U/L (16-63); AST 52 U/L (15-37); Albumin 3.2 g/dL (3.4-5.0); Alkaline Phosphatase 73 U/L (46-116); Anion Gap 9.1 mmol/L (3-11); BUN 29 mg/dL (7-18); Bilirubin, Total 0.7 mg/dL (0.2-1.0); CO2 24.9 mmol/L (21.0-32.0); CREATININE 1.6 mg/dL (0.70-1.30); Calcium 8.2 mg/dL (8.5-10.1); Chloride 98 mmol/L (98-107); Estimated GFR 44.93 (mL/min/1.73m2); Glucose 165 mg/dL (74-106); Potassium 3.5 mmol/L (3.5-5.1); Sodium 132 mmol/L (136-145); Total Protein 6.9 g/dL (6.4-8.2)
--- NOTE | 2022-09-07 19:14 | DI.VRAD_ITS ---
PROCEDURE INFORMATION: Exam: XR Chest Exam date and time: 09/07/2022 6:47 PM Age: 72 years old Clinical indication: Cough and fever; Additional info: Cough, fever TECHNIQUE: Imaging protocol: Radiologic exam of the chest. Views: 1 view. COMPARISON: CT CHEST LUNG CANCER SCREEN 03/14/2022 12:31 PM FINDINGS: Lungs: The lungs are clear. There is no pulmonary vascular congestion. Pleural spaces: There are no pleural effusions present, although evaluation for small left pleural effusion is limited, as the left lateral costophrenic angle is not imaged on this exam. Heart/Mediastinum: The cardiomediastinal silhouette is within normal limits. Bones/joints: Unremarkable. IMPRESSION: No active cardiopulmonary disease identified. Dictated and Authenticated by: Paolo Cano MD. Ordering:MICHEL Christensen MD
[2022-09-07 19:20] LABS: Procalcitonin 2.2 ng/mL
[2022-09-07 19:34] LABS: Bilirubin Negative (Negative); Blood Large (Negative); Clarity Clear (Clear); Glucose Negative (Negative); Ketones Trace mg/dL (Negative); Leukocyte Esterase Negative (Negative); Nitrite Negative (Negative)
[2022-09-07 19:42] LABS: Bacteria Few HPF (Negative); C & S Indicated? Yes; Casts 3-5 Hyaline LPF (Negative); Crystals Negative HPF (Negative); Epithelial Cells Rare HPF (Negative); Mucus Moderate (Negative); WBC 0-2 HPF (0-5)
[2022-09-07] MEDS: Doxycycline Hyclate 100 MG CAP PO (19:48)
[2022-09-09 11:34] LABS: Lyme Ab w Rflx to Lyme Confirm Negative (Negative)
[2022-09-11 15:30] LABS: B. miyamotoi PCR Negative (Negative); Babesia divergens/MO-1 Negative (Negative); Babesia duncani Negative (Negative); Babesia microti Negative (Negative); Ehrlichia chaffeensis Negative (Negative); Ehrlichia ewingii/canis Negative (Negative); Ehrlichia muris eauclairensis Negative (Negative)
[2022-09-11 15:44] LABS: Anaplasma phagocytophilum Positive (Negative)
--- NOTE | 2022-09-11 15:48 | NUR.NOTE ---
Nursing Note: Accessed pt chart to document positive anaplasma.
--- NOTE | 2022-09-11 15:51 | W.EDPROG ---
Date of service: 09/11/22 Time of Service: 15:51 Medical Decision Making Call patient let him know that his anaplasmosis was positive. Left a message for him to call us back. He is in the appropriate antibiotic. Discharge Plan Disposition Patient Disposition: Home Condition: Stable Discharge Details Clinical Impression: Chronic airway obstruction, not elsewhere classified, Chills Primary Care Provider: Osman Garnica ED Provider: Fermin Negron Home Meds and New Rx's Prescriptions: New doxycycline hyclate 100 mg tablet 100 mg PO BID Qty: 28 0RF levofloxacin 750 mg tablet 750 mg PO DAILY Qty: 5 0RF Continued ibuprofen 800 mg tablet 800 mg PO BID PRN (Reason: pain) Qty: 60 3RF Rx Instructions: as needed albuterol sulfate [Ventolin HFA] 90 mcg/actuation HFA aerosol inhaler 2 puff inhalation QID PRN (Reason: shortness of breath or wheezing) Qty: 1 1RF aspirin [Aspirin Low-Strength] 81 MG tablet,chewable 81 mg PO DAILY Patient Comments: 07/26/16 not currently taking MARI cpap machine HS Qty: 1 0RF Rx Instructions: used every night for sleep apnea; replaces 2008 machine Discharge Instructions Instructions: COPD (Chronic Obstructive Pulmonary Disease) (ED) Additional Instructions: You are being treated for a copd exacerbation and possibly a urinary tract infection You had a tick panel sent which the results should return in 1-2 days follow up with your primary care provider within 1 week if symptoms continue if you feel more ill, have difficulty breathing or severe weakness return to the emergency department Discharge Data Discharge Date/Time-TO BE ENTERED AT DEPARTURE: 09/07/22 20:13
== END 2022-09-07 20:13 | disposition home or self-care (01) ==
PROVIDERS: Emergency Provider Emergency Medicine; PCP Family Medicine
DX: A79.82 Anaplasmosis [A. phagocytophilum] (principal); J44.9 Chronic obstructive pulmonary disease, unspecified; R68.83 Chills (without fever)
CPT/HCPCS: 36415; 80053; 84145; 87637; 87798; 99284; 71045; 81003; 81015; 85025; 86618; 87086; J7512; J7620

== ENCOUNTER 2022-09-13 13:06 | Emergency (ER) | payer MEDICARE, SELFPAY ==
[2022-09-13 13:11] VITALS: PULSE 51; RESP 18; TEMP 36.3; O2SAT 98
--- NOTE | 2022-09-13 14:26 | NUR.NOTE ---
Nursing Note: Pt moved from WR to ED DI-3 by this RN. Pt ambulated steadily and in no signs of distress. Pt speaking in full sentences and unlabored. Pt has warm blankets for comfort.
[2022-09-13] MEDS: Normal Saline 1,000 ML 1000 ML IV (15:30)
--- NOTE | 2022-09-13 15:30 | RT.EKG_ITS ---
APPROVED REPORT Exam: Resting ECG Reason for Exam: bradycardia Patient Location: E HR:51 bpm ECG Measurements Heart Rate 51 AXIS SC 171 P 73 QRSd 111 QRS 0 QT 497 T 10 QTc 457 Conclusion Sinus bradycardia...rate< 60
[2022-09-13 16:08] LABS: Abs Immature Grans 0.18 10^3/uL (0.0-0.06); Absolute Basophil Count 0.03 10^3/uL (0.0-0.2); Absolute Eosinophil Count 0.21 10^3/uL (0.0-0.7); Absolute Lymphocyte Count 3.43 10^3/uL (1.2-3.4); Absolute Monocyte Count 1.15 10^3/uL (0.1-0.8); Basophils % 0.3; Eosinophils % 1.9; HGB 12.4 g/dL (13.5-17.5); Immature Grans % 1.6; Lymphocytes % 30.3; MCH 30.4 pg (27.0-33.0); MCHC 33.5 % (32.0-36.0); MCV 91 fL (80-95); MPV 11.5 fL (8.0-11.0); Monocytes % 10.2; Neutrophils % 55.7; Platelet Count 216 10^3/uL (130-400); RBC 4.08 10^6/uL (4.36-5.78); RDW-SD 47.1 fL; WBC 11.31 10^3/uL (4.4-10.8)
[2022-09-13 16:28] LABS: ALT 45 U/L (16-63); AST 23 U/L (15-37); Albumin 2.9 g/dL (3.4-5.0); Alkaline Phosphatase 59 U/L (46-116); Anion Gap 1.9 mmol/L (3-11); BUN 27 mg/dL (7-18); Bilirubin, Direct 0.2 mg/dL (0.0-0.2); Bilirubin, Total 0.6 mg/dL (0.2-1.0); CO2 33.1 mmol/L (21.0-32.0); CREATININE 1.1 mg/dL (0.70-1.30); Calcium 8.2 mg/dL (8.5-10.1); Chloride 105 mmol/L (98-107); Estimated GFR 70.44 (mL/min/1.73m2); Glucose 89 mg/dL (74-106); Magnesium 1.7 mg/dL (1.8-2.4); Sodium 140 mmol/L (136-145); Total Protein 6.1 g/dL (6.4-8.2); Troponin I 51 ng/L (<or=60)
[2022-09-13 16:32] LABS: NT-proBNP 1758 pg/mL (<300)
[2022-09-13 17:41] VITALS: BP 155/74; PULSE 52; RESP 18; O2SAT 99
[2022-09-13] MEDS: Potassium Chloride 20 MEQ TABCR (17:43)
--- NOTE | 2022-09-13 18:00 | DI.RAD_ITS ---
Exam(s) XR CHEST 2V PA LATERAL EXAM: XR CHEST 2V PA LATERAL CLINICAL HISTORY: weakness. TECHNIQUE: 2D digital imaging was performed. COMPARISON: CR,XR XR PORTABLE CHEST AP from 09/07/2022 FINDINGS: 2 views: Heart size is normal. The mediastinum is not widened. Lungs are clear. No infiltrates nor pleural effusions. IMPRESSION: No acute pulmonary findings. DATA REPOSITORY: RADIATION DOSE DELIVERED:
--- NOTE | 2022-09-13 18:28 | W.ED.GENAD ---
Discharge Plan Disposition Patient Disposition: Home Discharge Details Clinical Impression: Anaplasmosis, Bradycardia Primary Care Provider: Osman Garnica ED Provider: Michael Farrell Home Meds and New Rx's Prescriptions: Continued ibuprofen 800 mg tablet 800 mg PO BID PRN (Reason: pain) Qty: 60 3RF Rx Instructions: as needed albuterol sulfate [Ventolin HFA] 90 mcg/actuation HFA aerosol inhaler 2 puff inhalation QID PRN (Reason: shortness of breath or wheezing) Qty: 1 1RF aspirin [Aspirin Low-Strength] 81 MG tablet,chewable 81 mg PO DAILY Patient Comments: 07/26/16 not currently taking MARI cpap machine HS Qty: 1 0RF Rx Instructions: used every night for sleep apnea; replaces 2008 machine doxycycline hyclate 100 mg tablet 100 mg PO BID Qty: 28 0RF levofloxacin 750 mg tablet 750 mg PO DAILY Qty: 5 0RF Discharge Instructions Instructions: Bradycardia (ED) Additional Instructions: Your test was positive for a bacteria called anaplasmosis this was from a tick bite. The antibiotics you are taking are appropriate should continue them to their end. Please call your primary care provider in the morning for further evaluation as you may need cardiac testing for your slow heart rate. Medical Decision Making Differential Diagnosis Differential Diagnosis: Hypokalemia/anaplasmosis/congestive heart failure Medical Records Medical records narrative: Patient appears to be recovering from his episode of anaplasmosis. He is on the appropriate antibiotics. Shows no signs of sepsis. He has bradycardia but no significant delay of the NM interval and anaplasmosis does not appear to cause heart block. He is not hypotensive he has no postural symptoms. He is slightly hypokalemic and that could be the etiology of his generalized weakness. Have since repleted potassium p.o. Will obtain chest x-ray to rule out cardiomegaly or pulmonary edema given his elevated BNP. I suspect to things or not related however the patient will need close follow-up with PMD for likely an echocardiogram and continued outpatient cardiology evaluation. At this point the patient does not warrant inpatient admission and can continue an outpatient antibiotic ECG Data Attestation: I personally reviewed and interpreted this ECG (s) as follows: HPI General Date/Time Provider Initiated Documentation: 09/13/22 14:39. HPI Narrative: Patient presented to the ED several days ago with complaints of fevers and chills and generalized weakness. Suspicion at that time was for Lyme disease. Serology panel was drawn and sent off. Patient was called several days later as he was positive for anaplasmosis. Patient returns emergency department saying that he thought he feels better he still feels generalized weakness. No more fevers nor chills. Normal p.o. intake. He is on doxycycline and continuing a course. Denies chest pain denies shortness of breath on ambulation. States he has intermittent swelling of the lower extremity but this predates his recent illness. Patient denies any significant medical history. Chart demonstrates a history of obstructive sleep apnea. Patient is followed by Dr. Wilson PCP. Related Data Home Medications Medication Instructions Recorded Confirmed aspirin 81 mg chewable tablet 81 mg PO DAILY 04/01/14 09/07/22 (Aspirin Low-Strength) ibuprofen 800 mg tablet 800 mg PO BID PRN pain #60 tab-caps 11/25/19 02/21/22 albuterol sulfate 90 mcg/actuation 2 puff inhalation QID PRN 12/27/21 09/07/22 aerosol inhaler (Ventolin HFA) shortness of breath or wheezing #1 unit doxycycline hyclate 100 mg tablet 100 mg PO BID #28 tabs 09/07/22 levofloxacin 750 mg tablet 750 mg PO DAILY #5 tabs 09/07/22 Previous Rx's Medication Instructions Recorded ibuprofen 800 mg tablet 800 mg PO BID PRN pain #60 tab-caps 11/25/19 albuterol sulfate 90 mcg/actuation 2 puff inhalation QID PRN 12/27/21 aerosol inhaler (Ventolin HFA) shortness of breath or wheezing #1 unit doxycycline hyclate 100 mg tablet 100 mg PO BID #28 tabs 09/07/22 levofloxacin 750 mg tablet 750 mg PO DAILY #5 tabs 09/07/22 Allergies Allergy/AdvReac Type Severity Reaction Status Date / Time adhesive tape Allergy Intermediate reaction Verified 09/07/22 17:38 to steri strips/postop hernia repair 2009 General Stated Complaint: [facility] KAYODE: 3 Review of Systems Narrative: CONST: Negative for fever, body aches and chills. HENT: Negative for neck pain/stiffness, headache, congestion, sore throat, swelling. EYES: Negative for discharge/pain or vision changes. RESP: Negative for cough/hemoptysis and shortness of breath. CV: Negative chest pain, difficulty breathing, palpitations. ABD: Negative pain, nausea, vomiting. : Negative increase frequency, dysuria, blood in urine or stool. MUSC: Negative for muscle aches, edema. SKIN: Negative rash, lesions/sores. NEURO: Negative headache, dizziness, PFSH All Active Problems (Updated 09/13/22 @ 20:03 by Michael Farrell MD) Chills (Acute) Anaplasmosis (Acute) Bradycardia (Acute) Obstructive sleep apnea, adult (Acute 01/08/08) [place] [facility] [place] CPAP ([facility]) Chronic airway obstruction, not elsewhere classified (Acute 09/28/09) FEV1 2.46 (mild obst, 74% pred, 71% FVC); STOPPED SMOKING 09/2012; resume <= 1 PPD; stopped again 12/2015 Dyspnea on exertion (Acute) Nicotine dependence (Chronic) Medical History Allergic rhinitis (05/31/11) Ankle edema (02/26/13) Asthma Benign neoplasm of colon, 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 at 30 cm from anus, [facility] [place]; again tubular adenoma at cecum 12/2013; rpt 2019 Chest pain, atypical (03/17/17) DECLINES STRESS TEST Elevated fasting blood sugar (01/27/15) Erectile dysfunction (04/01/14) Gastroesophageal reflux disease (10/08/12) chronic ranitidine Hearing loss (05/31/11) has bilateral hearing aids (not using) Hyperplastic colon polyp Kidney stone (05/31/11) Left ear pain Non-rheumatic mitral regurgitation ECHO 03/2015 mild-mod; no murmur heard 12/2015; rec ECHO q 3-5 yr per AHA 2014 guideline Obesity (BMI 30.0-34.9) (05/31/11) Other hyperlipidemia ,isk calc 19% 03/2014, smoker, rec ASA and Statin and stop smoking; risk 17% 03/2017 start Atormastatin Recurrent simple right inguinal hernia Rhinosinusitis Runny nose Sessile colonic polyp Tobacco abuse disorder (07/29/14) Surgical History Extraction of cataract hernia repair History of surgery left arm. PT reports history of infection 2 day post op. S/P right inguinal hernia repair (~05/2021) Thoracentesis pt. denies this Family History Father , unknown at age 73. No problems noted. Brother , Lung Cancer at age 53. No problems noted. Mother , CVA at age 84. No problems noted. Brother , heart attack at age 59. Myocardial infarction Brother , heart at age 69. No problems noted. Sister No problems noted. Sister No problems noted. Sister No problems noted. Social History Smoking/Tobacco Use Status: Current every day Tobacco Type: cigarettes Smoking packs per day: 0.5 Smoking cigarettes per day: 10.0 Years smoked: 30 Smoking pack-years: 15.00 Quit status: considering quitting Smoking risk assessment performed?: Yes Alcohol Intake: current Alcohol Intake frequency: holidays/special occasions only Alcohol type: beer Drug use: Never Substance use type: does not use Household members: spouse current occupation: [employer] Current gender identity: male What is your relationship status?: Panel score (0-1 are the most socially isolated patients): 1 What type of physical activity do you participate in: none Frequency: daily Seatbelt use: always Drive intox or ride w/intox 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 EYES lids/conjunctiva normal. EARS/NOSE/THROAT Mucous membranes moist, nares normal, lips/teeth normal uvula midline without oral pharyngeal erythema, exudate or swelling No lymphangitis/lymphedema. HEAD/NECK normocephalic atraumatic, no facial trauma, neck is supple. RESPIRATORY respiratory effort normal, speaks in full sentences, no tripod position, no accessory muscle use. Lungs clear to auscultation without rhonchi, wheezes, rales CARDIAC irregular bradycardia from 40-55 ABDOMINAL Soft, ND/NT. No evidence of fluid wave. No pulsatile masses on exam, rebound tenderness, Vaughan sign or pain over Mcburney's point. MUSCLES/EXTREMITIES No abnormal range of motion, + swelling. SKIN Warm, pink and dry. No rashes, dermatoses, petechiae or lesions. NEUROLOGICAL Speech is clear and appropriate. Normal level of consciousness. Gait and coordination are normal. 5/5 strength in all extremities. PSYCH Normal mood and affect. Judgement/competence is appropriate Course Reevaluation(s) Time: 20:01 Reevaluation: Chest x-ray shows no sign of focal infiltrate or cardiomegaly. Unclear etiology of the patient's bradycardia I suspect that is unrelated to the anaplasmosis. He is on appropriate antibiotic therapy. Patient has no symptoms at this time. P.o. potassium has been administered. Would recommend follow-up with outpatient PMD in 4 cardiac work-up for the persistent bradycardia although asymptomatic and slightly elevated BNP. There is no evidence of a prolonged NM interval consistent with the heart block secondary to a tickborne illness. Also does not appear that anaplasmosis is associated with heart block. Vital Signs Vital signs: Vital Signs Temperature 36.3 C L 09/13/22 13:11 Pulse 51 L 09/13/22 13:11 Respiratory Rate 18 09/13/22 13:11 Pulse Oximetry 98 09/13/22 13:11 Temperature 36.3 C L 09/13/22 13:11 Temperature Source Tympanic 09/13/22 13:11 Pulse 52 L 09/13/22 17:41 Respiratory Rate 18 09/13/22 17:41 Respiratory Effort Normal 09/13/22 13:14 Respiratory Depth Normal 09/13/22 13:14 Respiratory Pattern Normal 09/13/22 13:14 Blood Pressure 155/74 H 09/13/22 17:41 Pulse Oximetry 99 09/13/22 17:41 Oxygen Delivery Method Room Air 09/13/22 17:41 Oxygen Flow Rate 0 09/13/22 17:41 Pain Level 0 09/13/22 13:11 Lab/Test Results Lab/Test Results: Laboratory Tests Range/Units 09/13/22 09/13/22 09/13/22 15:35 15:35 15:35 WBC (4.4-10.8) 10^3/uL 11.31 H RBC (4.36-5.78) 10^6/uL 4.08 L Hgb (13.5-17.5) g/dL 12.4 L Hct (40.0-50.0) % 37.0 L MCV (80-95) fL 91 MCH (27.0-33.0) pg 30.4 MCHC (32.0-36.0) % 33.5 RDW (11.8-14.1) % 14.0 Plt Count (130-400) 10^3/uL 216 MPV (8.0-11.0) fL 11.5 H Immature Gran % 1.6 Neutrophils % 55.7 Lymphocytes % 30.3 Monocytes % 10.2 Eosinophils % 1.9 Basophils % 0.3 Nucleated RBC % (0.0-0.3) % 0.0 Absolute Neutrophils (1.2-6.7) 10^3/uL 6.30 Absolute Lymphocytes (1.2-3.4) 10^3/uL 3.43 H Absolute Monocytes (0.1-0.8) 10^3/uL 1.15 H Absolute Eosinophils (0.0-0.7) 10^3/uL 0.21 Absolute Basophils (0.0-0.2) 10^3/uL 0.03 Sodium (136-145) mmol/L 140 Potassium (3.5-5.1) mmol/L 3.0 L Chloride (98-107) mmol/L 105 Carbon Dioxide (21.0-32.0) mmol/L 33.1 H Anion Gap (3-11) mmol/L 1.9 L BUN (7-18) mg/dL 27 H Creatinine (0.70-1.30) mg/dL 1.1 Est GFR (CKD-EPI 2020) (mL/min/1.73m2) 70.44 Glucose (74-106) mg/dL 89 Calcium (8.5-10.1) mg/dL 8.2 L Magnesium (1.8-2.4) mg/dL 1.7 L Total Bilirubin (0.2-1.0) mg/dL 0.6 Conjugated Bilirubin (0.0-0.2) mg/dL 0.2 AST (15-37) U/L 23 ALT (16-63) U/L 45 Alkaline Phosphatase (46-116) U/L 59 Troponin I (<or=60) ng/L 51 NT-Pro-B Natriuret Pep (<300) pg/mL 1758 H Total Protein (6.4-8.2) g/dL 6.1 L Albumin (3.4-5.0) g/dL 2.9 L
--- NOTE | 2022-09-13 19:23 | NUR.NOTE ---
Nursing Note: MD ordered IV K+ then verbally cancelled medication. MD then verbally ordered PO K+ to be given. MD did not order or change K+ in JUN.
[2022-09-13 19:54] VITALS: BP 171/82; PULSE 50; RESP 96; TEMP 36.8; O2SAT 100
--- NOTE | 2022-09-13 20:29 | DI.VRAD_ITS ---
PROCEDURE INFORMATION: Exam: XR Chest Exam date and time: 09/13/2022 7:50 PM Age: 72 years old Clinical indication: Other: Weakness TECHNIQUE: Imaging protocol: Radiologic exam of the chest. Views: 2 views. COMPARISON: CR XR PORTABLE CHEST AP 09/07/2022 6:47 PM FINDINGS: Lungs: Question slight hyperexpansion and hyperlucency with minimal diaphragmatic flattening suggesting possible COPD. Question mild central vascular congestion. No gross pulmonary infiltrates or edema pattern. Pleural spaces: No pleural effusion. No pneumothorax. Heart/Mediastinum: Heart size normal. No tracheal/mediastinal shift. Vasculature: Mild aortic ectasia/tortuosity. Bones/joints: No acute osseous abnormalities are identified. Mild thoracic spondylosis. Osteopenia. IMPRESSION: 1. No acute thoracic process. 2. Suspect COPD. 3. Question mild central vascular congestion. Dictated and Authenticated by: Paolo Michelle MD. Ordering:ÁNGEL Rodriguez MD
--- NOTE | 2022-09-14 12:04 | NUR.NOTE ---
Nursing Note: Accessed pt chart to determine EKG orders and if one needed to be deleted.
== END 2022-09-13 20:08 | disposition home or self-care (01) ==
PROVIDERS: Emergency Provider Emergency Medicine; PCP Family Medicine
DX: A79.82 Anaplasmosis [A. phagocytophilum] (principal); R00.1 Bradycardia, unspecified; R53.1 Weakness; E87.6 Hypokalemia
CPT/HCPCS: 80053; 80076; 93005; 96360; 99284; 71046; 83735; 83880; 84484; 85025; 93010

== ENCOUNTER 2022-09-29 08:16 | Outpatient (RCR) | payer MEDICARE, SELFPAY ==
--- NOTE | 2022-09-29 08:15 | HOLTER_ITS ---
APPROVED REPORT Conclusion This is a 48-hour Holter monitor, reportedly ordered for bradycardia Rhythm throughout was sinus with an average heart rate of 67. Minimum was 44, maximum 99 There were occasional atrial premature beats. There was no atrial fibrillation, no SVT There were moderately frequent premature ventricular contractions comprising 6.3% of total There was one 7 beat run of nonsustained ventricular tachycardia There was no high-grade AV block, no pauses greater than 3 seconds There were no apparent patient symptoms
== END 2022-09-30 23:59 | disposition home or self-care (01) ==
LOC: CARDOPNVT 08:16
PROVIDERS: PCP Family Medicine; Visit Provider Family Medicine
DX: R00.1 Bradycardia, unspecified (principal)
CPT/HCPCS: 93227; 93225

== ENCOUNTER 2022-10-03 15:37 | Outpatient (RCR) | payer MEDICARE, SELFPAY | END 2022-10-31 23:59 | disposition home or self-care (01) | LOC: CARDOPNVT 15:37 | PROVIDERS: PCP Family Medicine; Visit Provider Family Medicine | DX: R00.1 Bradycardia, unspecified (principal) | CPT/HCPCS: 93226 ==

== ENCOUNTER → 2022-11-14 01:47 | Outpatient (CLI) | payer MEDICARE, SELFPAY ==
--- NOTE | 2022-11-14 06:45 | DI.NM_ITS ---
APPROVED REPORT Exam: Pharmacologic Patient Location: Out-Patient Room/Bed: Stress Nurse: Willie Carpio RN Ordering Provider:THI ONEILL, Contact Number: BMI: 25.84 Baseline Rhythm: Sinus Rhythm Comment: Occasional unifocal PVC Indications: DIAZ, Frequent PVC's with exertion, Dyspnea. Medical History Medical History: Obstructive sleep apnea, dyspnea on exertion, asthma, COPD, nicotine dependance, HLD , ROSI. Cardiac Medications: none Allergies: No known drug allergies Cardiac Risk Factors: Hyperlipidemia, Asthma, COPD, Smoking, ROSI. Previous Cardiac Procedures: none Pretest Chest Pain Characteristics: No chest pain Exercise History: Sedentary Physical Disabilities: none Lung Sounds: Clear to auscultation Heart Sounds: Regular Stress Test Details Test: Pharmacologic stress testing performed using 0.4 mg of regadenoson per 5 mL given IV over 10 s econds. Reason for pharmacologic stress test: physical limitation, articact while walking on treadmill.. Nuclear Acquisition: Rest Tc-99m/Stress Tc-99m 1 day Rest Isotope: Tc-99m Sestamibi. Dose: 10 Date: 11/14/2022 Injection Time: 0915 Stress Isotope: Tc-99m Sestamibi. Dose: 31 Date: 11/14/2022 Injection Time: 1123 HR Resting HR Supine: 61 bpm Max Heart Rate (APMHR): 146.275226 bpm Resting HR Standin bpm Target HR (85% APMHR): 124.623321 bpm Max HR Achieved: 94 bpm % of APMHR: 64.38 Recovery HR: 66 bpm BP Resting BP Supine: 156/80 mmHg Resting BP Standin/72 mmHg Max BP: 188/78 mmHg Recovery BP: 158/70 mmHg ECG Resting ECG: Sinus Rhythm Ectopy: Occasional PVC's and unfocal PVC's. Stress ECG: Sinus Rhythm ST Change: No significant ST segment changes noted Arrhythmia: Occasional couplets, increased PVC's and PAC's. Recovery ECG: Sinus Rhythm Recovery ST Change: No significant ST segment changes noted Recovery Arrhythmia: Occasional PVC's and PAC's. Clinical Stress Symptoms: SOB Rate Pressure Product: [id number] Stress ECG Conclusion 1. The resting electrocardiogram showed left ventricular hypertrophy with repolarization abnormalitie s 2. Patient underwent testing using pharmacologic stress with regadenoson 3. Heart rate achieved was 62% of predicted for age 4. The electrocardiographic portion of the test was nondiagnostic 5. PVCs and couplets were seen 6. See MPI report Stress Test Summary STAGE HR BP SpO2 Symptoms NOTES Supine 61 156/80 94 none Standing 57 136/72 94 none 1 min post Lexiscan injection 73 188/78 SOB 3 min post Lexiscan injection 65 160/72 6 min post Lexiscan injection 63 158/70 Anthony protocal attempted but could not advance to stage two due to gate dysturbance and artifact on E CG. Transitioned to laying Ruthann. MPI Conclusion Myocardial perfusion is normal. There is no ischemia or evidence of prior infarction EF is 49% with normal wall motion Radiologist Interpretation Radiologist agrees with Nurse Executive's Interpretation. Radiologist Interpretation by: Fide Stacy MD Interpretation Date/Time: 11/15/2022 15:32:32
== END ==
PROVIDERS: PCP Family Medicine; Visit Provider Family Medicine
DX: I49.3 Ventricular premature depolarization (principal); R06.00 Dyspnea, unspecified
CPT/HCPCS: 78452; 93016; 93018; 93017

== ENCOUNTER 2022-11-17 11:29 | Outpatient (CLI) | payer MEDICARE, SELFPAY ==
--- NOTE | 2022-11-17 11:15 | RT.EKG_ITS ---
APPROVED REPORT Exam: Resting ECG Reason for Exam: bradycardia Patient Location: O HR:69 bpm ECG Measurements Heart Rate 69 AXIS [place] 158 P 39 QRSd 102 QRS -19 QT 426 T 21 QTc 457 Conclusion Sinus arrhythmia...V-rate 62- 75, variation>10% Ventricular premature complex...V complex w/ short R-R interval Otherwise normal ECG
== END 2022-11-17 11:30 | disposition home or self-care (01) ==
LOC: DI.CARD 11:29
PROVIDERS: PCP Family Medicine; Visit Provider Internal Medicine Cardiovascular Disease
DX: R00.1 Bradycardia, unspecified (principal)
CPT/HCPCS: 93010

== ENCOUNTER → 2022-11-17 13:02 | Outpatient (BNVA) | payer MEDICARE, SELFPAY | PROVIDERS: PCP Family Medicine; Referring Provider Family Medicine; Visit Provider Internal Medicine Cardiovascular Disease | DX: I49.3 Ventricular premature depolarization (principal) | CPT/HCPCS: 93005; 99202; 99213 ==

== ENCOUNTER 2023-02-05 08:40 | Emergency (ER) | payer MEDICARE, SELFPAY ==
[2023-02-05] VITALS (12 sets, daily range): BP systolic 127–190; BP diastolic 49–79; PULSE 54–78; RESP 18–34; O2SAT 93–99
--- NOTE | 2023-02-05 08:30 | RT.EKG_ITS ---
APPROVED REPORT Exam: Resting ECG Reason for Exam: SOB Patient Location: E HR:66 bpm ECG Measurements Heart Rate 66 AXIS AL 176 P 56 QRSd 110 QRS -21 QT 435 T 45 QTc 455 Conclusion Sinus rhythm...normal P axis, V-rate 60- 99 Ventricular bigeminy...bigeminy string>4 w/ V complexes
--- NOTE | 2023-02-05 09:00 | DI.RAD_ITS ---
Exam(s) XR CHEST 2V PA LATERAL EXAM: XR CHEST 2V PA LATERAL CLINICAL HISTORY: cough, pui TECHNIQUE: 2D digital imaging was performed of the chest. Two images were obtained. PA and lateral views were obtained. COMPARISON: CR,XR XR CHEST 2V PA LATERAL from 09/13/2022 FINDINGS: MEDIASTINUM: Normal. HEART: Normal. PULMONARY VASCULATURE: Normal. LUNGS: Clear. PLEURAL SPACE: No pleural effusion or pneumothorax. BONE:Within normal limits for the patient's age. OTHER FINDINGS:Normal. IMPRESSION: No acute pulmonary findings. DATA REPOSITORY: RADIATION DOSE DELIVERED:
[2023-02-05 09:22] LABS: Abs Immature Grans 0.02 10^3/uL (0.0-0.06); Absolute Basophil Count 0.03 10^3/uL (0.0-0.2); Absolute Eosinophil Count 0.14 10^3/uL (0.0-0.7); Absolute Lymphocyte Count 0.85 10^3/uL (1.2-3.4); Absolute Monocyte Count 0.95 10^3/uL (0.1-0.8); Absolute Neutrophil Count 5.75 10^3/uL (1.2-6.7); Basophils % 0.4; Eosinophils % 1.8; HCT 37.7 % (40.0-50.0); HGB 12.7 g/dL (13.5-17.5); Immature Grans % 0.3; MCH 30.5 pg (27.0-33.0); MCHC 33.7 % (32.0-36.0); MCV 91 fL (80-95); MPV 10.6 fL (8.0-11.0); Monocytes % 12.3; Neutrophils % 74.2; Platelet Count 188 10^3/uL (130-400); RBC 4.16 10^6/uL (4.36-5.78); RDW 13.5 % (11.8-14.1); RDW-SD 45.2 fL; WBC 7.74 10^3/uL (4.4-10.8)
--- NOTE | 2023-02-05 09:37 | W.ED.GENAD ---
Discharge Plan Disposition Patient Disposition: Home Condition: Stable Discharge Details Clinical Impression: Elevated blood pressure reading, Acute asthma exacerbation, Bronchitis, Hypokalemia Primary Care Provider: Osman Garnica ED Provider: Dane Parker Home Meds and New Rx's Prescriptions: New prednisone 20 mg tablet 40 mg PO DAILY Qty: 8 0RF Rx Instructions: start 02/06/23 amoxicillin-pot clavulanate 875-125 mg tablet 1 tab PO BID Qty: 13 0RF Continued ibuprofen 800 mg tablet 800 mg PO BID PRN (Reason: pain) Qty: 60 3RF Rx Instructions: as needed Anoro Ellipta 62.5-25 mcg/actuation blister with device 1 inh inhalation DAILY Qty: 60 3RF aspirin [Aspirin Low-Strength] 81 MG tablet,chewable 81 mg PO DAILY Patient Comments: 07/26/16 not currently taking MARI cpap machine HS Qty: 1 0RF Rx Instructions: used every night for sleep apnea; replaces 2008 machine albuterol sulfate [Ventolin HFA] 90 mcg/actuation HFA aerosol inhaler 2 puff inhalation QID PRN (Reason: shortness of breath or wheezing) Qty: 1 1RF Discharge Instructions Instructions: Asthma (ED), Hypokalemia (ED), Acute Bronchitis (ED) Additional Instructions: Please take full course of antibiotic as prescribed. Please be sure to use spacer with your albuterol inhaler. Your blood pressure was elevated today. Please call your doctor tomorrow to arrange timely follow-up. You should have your blood pressure checked. You may need additional diagnostics or treatment if blood pressure remains elevated. Referrals: Osman Garnica DO [Primary Care Provider] - Discharge Data Discharge Date/Time-TO BE ENTERED AT DEPARTURE: 02/05/23 11:20 Medical Decision Making 940??72-year-old male smoker with self-reported history of asthma here with cough, rhinorrhea, shortness of breath with chest congestion over the past 1 week. Patient more short of breath this morning. Patient is saturating well. He is tachypneic and hypertensive. Patient does note some dyspnea on exertion. Suspect pneumonia versus bronchitis with acute asthma exacerbation. Consider COVID. Screening EKG was reviewed and interpreted by me: Please report, sinus rhythm 66 bpm, normal axis, intermittent PVCs noted. Consider CHF and will check BNP. Patient does have significant wheeze. I will give two DuoNeb treatments and Solu-Medrol IV. --Labs reviewed and hypokalemia noted. Patient given potassium chloride orally. 1100 --patient was reassessed and feeling much better. Lungs still with rhonchi but wheeze resolved. Plan to continue burst course of prednisone and will refill albuterol inhaler and provide spacer. We will treat with doxycycline. I will have the patient follow-up with PCP. Usual and customary discharge instructions were reviewed. Lab Data Lab results reviewed: Yes I reviewed the patient's lab results. Labs: Laboratory Tests Range/Units 02/05/23 09:17 WBC (4.4-10.8) 10^3/uL 7.74 RBC (4.36-5.78) 10^6/uL 4.16 L Hgb (13.5-17.5) g/dL 12.7 L Hct (40.0-50.0) % 37.7 L MCV (80-95) fL 91 MCH (27.0-33.0) pg 30.5 MCHC (32.0-36.0) % 33.7 RDW (11.8-14.1) % 13.5 Plt Count (130-400) 10^3/uL 188 MPV (8.0-11.0) fL 10.6 Immature Gran % 0.3 Neutrophils % 74.2 Lymphocytes % 11.0 Monocytes % 12.3 Eosinophils % 1.8 Basophils % 0.4 Nucleated RBC % (0.0-0.3) % 0.0 Absolute Neutrophils (1.2-6.7) 10^3/uL 5.75 Absolute Lymphocytes (1.2-3.4) 10^3/uL 0.85 L Absolute Monocytes (0.1-0.8) 10^3/uL 0.95 H Absolute Eosinophils (0.0-0.7) 10^3/uL 0.14 Absolute Basophils (0.0-0.2) 10^3/uL 0.03 Sodium (136-145) mmol/L 135 L Potassium (3.5-5.1) mmol/L 3.2 L Chloride (98-107) mmol/L 100 Carbon Dioxide (21.0-32.0) mmol/L 28.1 Anion Gap (3-11) mmol/L 6.9 BUN (7-18) mg/dL 12 Creatinine (0.70-1.30) mg/dL 1.1 Est GFR (CKD-EPI 2020) (mL/min/1.73m2) 70.44 Glucose (74-106) mg/dL 158 H Calcium (8.5-10.1) mg/dL 8.5 Magnesium (1.8-2.4) mg/dL 2.0 Total Bilirubin (0.2-1.0) mg/dL 0.5 AST (15-37) U/L 13 L ALT (16-63) U/L 15 L Alkaline Phosphatase (46-116) U/L 59 Troponin I (<or=60) ng/L < 50 NT-Pro-B Natriuret Pep (<300) pg/mL 574 H Total Protein (6.4-8.2) g/dL 6.8 Albumin (3.4-5.0) g/dL 3.2 L COVID-19 Source Nasopharynx SARS-CoV-2 (PCR) (Negative) Negative Influenza Type A (PCR) (Negative) Negative Influenza Type B (PCR) (Negative) Negative RSV (PCR) (Negative) Negative HPI General Mode of arrival: ambulatory. Date/Time Provider Initiated Documentation: 02/05/23 08:58. Limitations to Documentation: no limitations. Information obtained by: patient. HPI Narrative: 72-year-old male smoker with history of asthma, here with productive cough and shortness of breath. Patient notes over the past 1 week he has had cough and progressively worse shortness of breath. He has had some tightness in his chest described as congestion related to the cough. He also notes associated rhinorrhea. Possible subjective fever. Patient denies leg swelling or calf pain. He has no chest pain at this time. Related Data Home Medications Medication Instructions Recorded Confirmed aspirin 81 mg chewable tablet 81 mg PO DAILY 04/01/14 02/05/23 (Aspirin Low-Strength) ibuprofen 800 mg tablet 800 mg PO BID PRN pain #60 tab-caps 11/25/19 02/05/23 umeclidinium 62.5 mcg-vilanterol 1 inh inhalation DAILY #60 ea 10/31/22 02/05/23 25 mcg/actuation powdr for inhalation (Anoro Ellipta) albuterol sulfate 90 mcg/actuation 2 puff inhalation QID PRN 02/05/23 aerosol inhaler (Ventolin HFA) shortness of breath or wheezing #1 unit amoxicillin 875 mg-potassium 1 tab PO BID #13 tabs 02/05/23 clavulanate 125 mg tablet prednisone 20 mg tablet 40 mg (2 x 20 mg) PO DAILY #8 tabs 02/05/23 Previous Rx's Medication Instructions Recorded ibuprofen 800 mg tablet 800 mg PO BID PRN pain #60 tab-caps 11/25/19 umeclidinium 62.5 mcg-vilanterol 1 inh inhalation DAILY #60 ea 10/31/22 25 mcg/actuation powdr for inhalation (Anoro Ellipta) albuterol sulfate 90 mcg/actuation 2 puff inhalation QID PRN 02/05/23 aerosol inhaler (Ventolin HFA) shortness of breath or wheezing #1 unit amoxicillin 875 mg-potassium 1 tab PO BID #13 tabs 02/05/23 clavulanate 125 mg tablet prednisone 20 mg tablet 40 mg (2 x 20 mg) PO DAILY #8 tabs 02/05/23 Allergies Allergy/AdvReac Type Severity Reaction Status Date / Time adhesive tape Allergy Intermediate reaction Verified 02/05/23 08:48 to steri strips/postop hernia repair 2009 General Stated Complaint: RespSymp KAYODE: 3 Review of Systems All systems reviewed & are unremarkable except as noted in HPI and below Constitutional Constitutional: Reports fever(s) Cardiovascular Cardiovascular: Reports as per HPI Respiratory Respiratory: Reports as per HPI PFSH All Active Problems (Updated 02/05/23 @ 11:03 by Dane Parker MD) Hypokalemia (Acute) Bronchitis (Acute) Acute asthma exacerbation (Acute) Elevated blood pressure reading (Acute) Obstructive sleep apnea, adult (Acute 01/08/08) Sleep Lab [facility] [place]; CPAP ([facility]) Chronic airway obstruction, not elsewhere classified (Acute 09/28/09) FEV1 2.46 (mild obst, 74% pred, 71% FVC); STOPPED SMOKING 09/2012; resume <= 1 PPD; stopped again 12/2015 Dyspnea on exertion (Acute) Nicotine dependence (Chronic) Medical History Recurrent simple right inguinal hernia Sessile colonic polyp Hyperplastic colon polyp Left ear pain Runny nose Rhinosinusitis Ankle edema (11/26/13) Erectile dysfunction (04/01/14) Kidney stone (05/31/11) Asthma Allergic rhinitis (05/31/11) Benign neoplasm of colon, 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 at 30 cm from anus, [facility] [place]; again tubular adenoma at cecum 12/2013; rpt 2019 Chest pain, atypical (03/17/17) DECLINES STRESS TEST Elevated fasting blood sugar (01/27/15) Gastroesophageal reflux disease (10/08/12) chronic ranitidine Hearing loss (05/31/11) has bilateral hearing aids (not using) Non-rheumatic mitral regurgitation ECHO 03/2015 mild-mod; no murmur heard 12/2015; rec ECHO q 3-5 yr per AHA 2014 guideline Obesity (BMI 30.0-34.9) (05/31/11) Other hyperlipidemia ,isk calc 19% 03/2014, smoker, rec ASA and Statin and stop smoking; risk 17% 03/2017 start Atormastatin Tobacco abuse disorder (07/29/14) Surgical History S/P right inguinal hernia repair (~05/2021) History of surgery left arm. PT reports history of infection 2 day post op. hernia repair Thoracentesis pt. denies this Extraction of cataract Family History Father , unknown at age 73. No problems noted. Brother , Lung Cancer at age 53. No problems noted. Mother , CVA at age 84. No problems noted. Brother , heart attack at age 59. Myocardial infarction Brother , heart at age 69. No problems noted. Sister No problems noted. Sister No problems noted. Sister No problems noted. Social History Smoking/Tobacco Use Status: Current every day Tobacco Type: cigarettes Smoking packs per day: 0.5 Smoking cigarettes per day: 10.0 Years smoked: 30 Smoking pack-years: 15.00 Quit status: considering quitting Smoking risk assessment performed?: Yes Alcohol Intake: current Alcohol Intake frequency: holidays/special occasions only Alcohol type: beer Drug use: Never Substance use type: does not use Household members: spouse current occupation: [employer] 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 Working smoke detector in home: Yes Fire extinguisher in home: Yes Carbon monox detector in home: Yes Do you feel safe at home: Yes Do you feel safe in your relationship?: Yes Exam Const General: cooperative and no acute distress HENMT Mouth: moist mucous membranes Eyes Conjunctivae: normal conjunctivae Sclera: normal sclerae Neck Neck: trachea midline and supple Resp Effort & Inspection: cough, not labored and tachypneic Auscultation: rales on the right in the lower lung busby, rhonchi and wheezes expiratory wheezes Cardio Rate: regular rate and not tachycardic Rhythm: regular rhythm GI Palpation: soft, not firm, no guarding, no masses, not rigid and nontender Skin General skin exam: no rashes or lesions noted Neuro General: patient alert, patient awake and tone normal Extrem General: no edema Psych Appearance: grossly normal Mental Status: mental status grossly normal Course Vital Signs Vital signs: Vital Signs Pulse 70 02/05/23 08:44 Respiratory Rate 33 H 02/05/23 08:44 Blood Pressure 190/68 H 02/05/23 08:44 Pulse Oximetry 97 02/05/23 08:44 Temperature Source Skin 02/05/23 08:44 Pulse 70 02/05/23 08:44 Respiratory Rate 33 H 02/05/23 08:44 Respiratory Effort Normal, Short of Breath 02/05/23 08:57 Respiratory Depth Normal 02/05/23 08:57 Blood Pressure 190/68 H 02/05/23 08:44 Blood Pressure Position Sitting 02/05/23 08:44 Pulse Oximetry 97 02/05/23 08:44 Oxygen Delivery Method Room Air 02/05/23 08:44 Oxygen Flow Rate 0 02/05/23 08:44 Pain Level 0 02/05/23 08:44
[2023-02-05] MEDS: Albuterol/Ipratropium 3 ML UPD VIAL UPD ×2 (10:03)
[2023-02-05 10:04] LABS: ALT 15 U/L (16-63); AST 13 U/L (15-37); Albumin 3.2 g/dL (3.4-5.0); Alkaline Phosphatase 59 U/L (46-116); Anion Gap 6.9 mmol/L (3-11); BUN 12 mg/dL (7-18); Bilirubin, Total 0.5 mg/dL (0.2-1.0); CO2 28.1 mmol/L (21.0-32.0); CREATININE 1.1 mg/dL (0.70-1.30); Calcium 8.5 mg/dL (8.5-10.1); Chloride 100 mmol/L (98-107); Estimated GFR 70.44 (mL/min/1.73m2); Glucose 158 mg/dL (74-106); NT-proBNP 574 pg/mL (<300); Potassium 3.2 mmol/L (3.5-5.1); Sodium 135 mmol/L (136-145); Total Protein 6.8 g/dL (6.4-8.2); Troponin I < 50 ng/L (<or=60)
--- NOTE | 2023-02-05 10:05 | DI.VRAD_ITS ---
PROCEDURE INFORMATION: Exam: XR Chest Exam date and time: 02/05/2023 9:36 AM Age: 72 years old Clinical indication: Other: Cough, pui TECHNIQUE: Imaging protocol: Radiologic exam of the chest. Views: 2 views. COMPARISON: CR XR CHEST 2V PA LATERAL 09/13/2022 7:50 PM FINDINGS: Lungs: Unremarkable. No consolidation. Pleural spaces: Unremarkable. No pleural effusion. No pneumothorax. Heart/Mediastinum: Unremarkable. No cardiomegaly. Bones/joints: Unremarkable. IMPRESSION: No acute findings. Dictated and Authenticated by: Nerissa Stewart MD. Ordering:COLLIN Vela MD
[2023-02-05 10:06] LABS: COVID-19 PCR Negative (Negative); Influenza A PCR Negative (Negative); Influenza B PCR Negative (Negative); RSV PCR Negative (Negative)
[2023-02-05] MEDS: methylPREDNISolone SUCC 125 MG VIAL 60 MG IVP (10:12)
[2023-02-05 10:23] LABS: Source Nasopharynx
[2023-02-05] MEDS: Potassium Chloride 20 MEQ TABCR PO (10:34)
[2023-02-05] MEDS: Amoxicillin 875/Clav. 125 TAB PO (11:19)
== END 2023-02-05 11:20 | disposition home or self-care (01) ==
PROVIDERS: Emergency Provider Student in an Organized Health Care Education/Training Program; PCP Family Medicine
DX: R07.89 Other chest pain (principal); R03.0 Elevated blood-pressure reading, without diagnosis of hypertension; J45.901 Unspecified asthma with (acute) exacerbation; E87.6 Hypokalemia
CPT/HCPCS: 36415; 80053; 87637; 93005; 94640; 99284; 71046; 83735; 83880; 84484; 85025; 93010; J2930; J7620

== ENCOUNTER → 2023-08-21 03:51 | Outpatient (CLI) | payer MEDICARE, SELFPAY ==
--- NOTE | 2023-08-21 07:00 | DI.CTLCSR_ITS ---
Exam(s) CT CHEST LUNG CANCER SCREEN EXAM: CT CHEST LUNG CANCER SCREEN CLINICAL HISTORY: Screening for lung cancer,current smoker, f17.210. TECHNIQUE: Imaging Protocol: Low Dose Technique CONTRAST MATERIAL: None COMPARISON: CT CT CHEST LUNG CANCER SCREEN from 03/14/2022 CR,XR XR CHEST 2V PA LATERAL from 02/05/2023 FINDINGS: CHEST: LUNGS: The previously described small right lung nodule is again unchanged in size. Two small nodula r densities in the and anterior aspect of the left upper lobe are also unchanged. There are no new o minous pulmonary nodules. There are no confluent infiltrates. No pleural effusions. MEDIASTINUM: There is no obvious hilar nor mediastinal adenopathy. CARDIAC: Heart size is normal. There is no pericardial effusion.Caliber of the thoracic aorta is wit hin upper normal limits. OTHER: Cholelithiasis again noted. OSSEOUS: No significant osseous lesions.. IMPRESSION: 1. Stable unchanged small lung nodules. 2. No new nodules nor pleural effusions nor intrathoracic adenopathy. 3. Lung RADS Cat 2 - Benign Appearance / Behavior: Nodules with a very low likelihood of becoming a c linically active cancer due to size or lack of growth Lung-RADS 1.0 CATEGORIES: Category 0 - Prior chest CT exam(s) being located for comparison. Category 1 - Annual screening in 12 months. No nodules or definitely benign nodules. Category 2 - Annual screening in 12 months. Benign appearance. Nodules with low likelihood of becomin g active cancer. Category 3 - 6-month follow-up. Probably benign. Short-term follow-up suggested. Nodules with low lik elihood of becoming active cancer. Category 4A - 3-month follow-up and CT/PET if >8 mm in size. Suspicious finding. Findings which requi re additional testing. Category 4B - Findings which require additional testing and tissue sampling. Category 4X - Category 3 or 4 nodules with additional features or imaging findings that increases the suspicion of malignancy. Modifier S- Potentially clinically significant findings (non lung cancer) RADIATION DOSE DELIVERED: 76.91mGy.cm Total DLP DATA REPOSITORY: All CT scans at this facility are submitted to the National Radiology Data Registry (NRDR) Dose Index Registry (DIR) with the [employer] (ACR). RADIATION OPTIMIZATION: All CT scans at this facility use at least one of these dose optimization te chniques: automated exposure control; mA and/or kV adjustment per patient size (includes targeted exa ms where dose is matched to clinical indication); or iterative reconstruction.
== END ==
PROVIDERS: PCP Family Medicine; Visit Provider Family Medicine
DX: F17.210 Nicotine dependence, cigarettes, uncomplicated (principal); Z12.2 Encounter for screening for malignant neoplasm of respiratory organs
CPT/HCPCS: 71271

== ENCOUNTER 2023-08-21 05:26 | Outpatient (CLI) | payer MEDICARE, SELFPAY ==
[2023-08-21 11:18] LABS: Anion Gap 6.7 mmol/L (3-11); BUN 22 mg/dL (7-18); CO2 28.3 mmol/L (21.0-32.0); CREATININE 0.9 mg/dL (0.70-1.30); Calcium 8.7 mg/dL (8.5-10.1); Chloride 105 mmol/L (98-107); Estimated GFR 89.07 (mL/min/1.73m2); Glucose 124 mg/dL (74-106); Potassium 3.8 mmol/L (3.5-5.1); Sodium 140 mmol/L (136-145)
== END 2023-08-21 05:27 | disposition home or self-care (01) ==
LOC: LBO 05:26
PROVIDERS: PCP Family Medicine; Referring Provider Nurse Practitioner Adult Health; Visit Provider Nurse Practitioner Adult Health
DX: Z13.1 Encounter for screening for diabetes mellitus (principal); E87.6 Hypokalemia
CPT/HCPCS: 36415; 71271; 80048